=== PATIENT | male | born 1950 | race Caucasian/White ===

== ENCOUNTER → 2024-05-11 10:15 | Outpatient (REF) | payer MEDICARE, SELFPAY | LOC: HWRAD 10:15 | PROVIDERS: ATTENDING PHYSICIAN Physician Assistant; FAMILY PHYSICIAN Family Medicine | DX: J32.8 Other chronic sinusitis (principal) | CPT/HCPCS: 70486 ==

== ENCOUNTER → 2024-11-16 09:20 | Outpatient (REF) | payer MEDICARE, SELFPAY | LOC: RAD 09:20 | PROVIDERS: ATTENDING PHYSICIAN Internal Medicine Cardiovascular Disease; FAMILY PHYSICIAN Family Medicine | DX: R94.39 Abnormal result of other cardiovascular function study (principal) | CPT/HCPCS: 75574; Q9967 ==

== ENCOUNTER 2025-01-11 04:43 | Inpatient (IN) | payer MEDICARE, SELFPAY ==
[2025-01-05 12:45] VITALS: BMI 34.3
[2025-01-05 13:35] LABS: Hematocrit 51.9 % (39.0-52.0); Hemoglobin 17.5 g/dL (13.0-18.0); Mean Corp Hgb Conc. 33.7 g/dL (33.0-37.0); Mean Corpuscular Volume 88.0 fL (80.0-94.0); Nucleated Red Blood Cells % 0 % (-); Platelet Count 203 10^3/uL (130-400); Red Cell Dist. Width 13.2 % (11.5-14.5)
[2025-01-05 13:49] LABS: INR 0.98; PT 13.5 Sec (11.4-14.6)
[2025-01-05 14:08] LABS: ALT (SGPT) 31 U/L (0-50); AST (SGOT) 25 U/L (17-59); Albumin 4.8 g/dl (3.5-5.0); Alkaline Phosphatase 110 U/L (38-126); Blood Urea Nitrogen 28 mg/dl (9-20); Calcium 9.4 mg/dl (8.4-10.2); Carbon Dioxide 29 mmol/L (22-30); Estimated Creatinine Clearance 54 ml/min; Glucose 105 mg/dl (70-99); Potassium 4.9 mmol/L (3.5-5.1); Sodium 143 mmol/L (135-145); Total Protein 8.3 g/dl (6.3-8.2); eGFR 48.25
[2025-01-05 14:14] LABS: Chloride 106 mmol/L (98-107)
[2025-01-05 14:17] LABS: Glycohemoglobin (HgbA1c) 6.9 % (4.0-5.6)
[2025-01-05 14:32] LABS: Urine Character Clear (Clear)
--- NOTE | 2025-01-05 14:45 | CM ---
Chart reviewed. Met with the patient and in PAT. Reviewed preoperative and postoperative instructions and restrictions, along with showering guidelines. Gave patient 2 soaps. Patient is agreeable to a home visit by CT Transitional RN.
Patient is independent of ADLS, lives with his in a 2 [place], 2 [place]EX[place], 0 DME. Plan is for the patient to return home with CT Transitional RN.
[2025-01-05 15:25] LABS: Urine Red Blood Cell 0-2 /HPF (0-2)
[2025-01-05 15:26] LABS: Urine White Cell 0-2 /HPF (0-5)
[2025-01-11] VITALS (14 sets, daily range): BP systolic 70–133; BP diastolic 56–77; BMI 32.8
[2025-01-11] MEDS: LOPRESSOR 25 MG PO (05:42)
[2025-01-11] MEDS: BACTROBAN 2% OINTMENT 1 APPLIC NASAL ×2 (05:43→20:04)
[2025-01-11] MEDS: MAGNESIUM OXIDE 400 MG PO (05:43)
[2025-01-11] MEDS: PROTONIX 40 MG PO (05:43)
--- NOTE | 2025-01-11 06:04 | W.CVOR.SURPR ---
CVOR Surgeon Immed Pre Op
-
I have examined this patient prior to performance of the scheduled procedure.
The patient's condition is unchanged from the time of the dictated/written History and
Physical and the patient is able to undergo the scheduled procedure.
--- NOTE | 2025-01-11 06:15 | PTCARENOTE ---
Patient admitted to CVICU. Patient confirms both CHG showers. Patient admission questions completed. Patient clipped and washed w/ CHG. Patient med rec. completed. Medications administered. Awaiting CVOR.
[2025-01-11 07:18] LABS: ACT+ - POC 134 Seconds (82-134)
[2025-01-11 07:33] LABS: Urine Character Clear (Clear)
[2025-01-11 08:09] LABS: Urine Red Blood Cell 0-2 /HPF (0-2); Urine White Cell 0-2 /HPF (0-5)
[2025-01-11 09:50] LABS: B.E. - POC -3.1 mmol/L; Glucose - POC 178 mg/dl (70-99); HCO3 - POC 24 mmol/L (21-28); Hematocrit - POC 44 % PCV (42-52); Hemodilution- POC Yes; Hemoglobin Calculated - POC 14.9; Ionized Calcium - POC 1.28 mmol/L (1.15-1.33); Lactate - POC 0.85 mmol/L (0.36-0.75); O2 Saturation %Calculated-POC 99.5 % (94-98); PCO2 - POC 49 mmHg (35-48); PO2 - POC 191 mmHg (83-108); POC Comment PRE; Potassium - POC 4.0 mmol/L (3.5-5.1); Sodium - POC 139 mmol/L (136-145); Specimen Type - POC Arterial; pH - POC 7.30 (7.35-7.45)
[2025-01-11 10:19] LABS: B.E. - POC 1.8 mmol/L; Glucose - POC 158 mg/dl (70-99); HCO3 - POC 27 mmol/L (21-28); Hematocrit - POC 33 % PCV (42-52); Hemodilution- POC Yes; Hemoglobin Calculated - POC 11.2; Ionized Calcium - POC 1.08 mmol/L (1.15-1.33); Lactate - POC 0.49 mmol/L (0.36-0.75); O2 Saturation %Calculated-POC 100.0 % (94-98); PCO2 - POC 44 mmHg (35-48); PO2 - POC 403 mmHg (83-108); POC Comment CPB; Potassium - POC 5.1 mmol/L (3.5-5.1); Sodium - POC 137 mmol/L (136-145); Specimen Type - POC Arterial; pH - POC 7.40 (7.35-7.45)
[2025-01-11 10:49] LABS: B.E. - POC 1.1 mmol/L; Glucose - POC 154 mg/dl (70-99); HCO3 - POC 26 mmol/L (21-28); Hematocrit - POC 35 % PCV (42-52); Hemodilution- POC Yes; Hemoglobin Calculated - POC 12.0; Ionized Calcium - POC 1.14 mmol/L (1.15-1.33); Lactate - POC 1.27 mmol/L (0.36-0.75); O2 Saturation %Calculated-POC 99.9 % (94-98); PCO2 - POC 40 mmHg (35-48); PO2 - POC 268 mmHg (83-108); POC Comment CPB; Potassium - POC 4.3 mmol/L (3.5-5.1); Sodium - POC 140 mmol/L (136-145); Specimen Type - POC Arterial; pH - POC 7.42 (7.35-7.45)
[2025-01-11 11:03] LABS: ACT+ - POC 768 Seconds (82-134)
[2025-01-11 11:15] LABS: B.E. - POC -1.2 mmol/L; Glucose - POC 125 mg/dl (70-99); HCO3 - POC 24 mmol/L (21-28); Hematocrit - POC 31 % PCV (42-52); Hemodilution- POC Yes; Hemoglobin Calculated - POC 10.7; Ionized Calcium - POC 1.11 mmol/L (1.15-1.33); Lactate - POC 1.49 mmol/L (0.36-0.75); O2 Saturation %Calculated-POC 99.8 % (94-98); PCO2 - POC 40 mmHg (35-48); PO2 - POC 237 mmHg (83-108); POC Comment CPB; Potassium - POC 4.4 mmol/L (3.5-5.1); Sodium - POC 141 mmol/L (136-145); Specimen Type - POC Arterial; pH - POC 7.38 (7.35-7.45)
[2025-01-11 11:31] LABS: ACT+ - POC 801 Seconds (82-134)
[2025-01-11 11:47] LABS: B.E. - POC -0.1 mmol/L; Glucose - POC 113 mg/dl (70-99); HCO3 - POC 25 mmol/L (21-28); Hematocrit - POC 33 % PCV (42-52); Hemodilution- POC Yes; Hemoglobin Calculated - POC 11.2; Ionized Calcium - POC 1.15 mmol/L (1.15-1.33); Lactate - POC 1.31 mmol/L (0.36-0.75); O2 Saturation %Calculated-POC 99.9 % (94-98); PCO2 - POC 41 mmHg (35-48); PO2 - POC 302 mmHg (83-108); POC Comment CPB; Potassium - POC 4.0 mmol/L (3.5-5.1); Sodium - POC 143 mmol/L (136-145); Specimen Type - POC Arterial; pH - POC 7.39 (7.35-7.45)
[2025-01-11 11:57] LABS: ACT+ - POC 571 Seconds (82-134)
[2025-01-11 12:13] LABS: B.E. - POC -0.3 mmol/L; Glucose - POC 124 mg/dl (70-99); HCO3 - POC 24 mmol/L (21-28); Hematocrit - POC 35 % PCV (42-52); Hemodilution- POC Yes; Hemoglobin Calculated - POC 11.7; Ionized Calcium - POC 1.11 mmol/L (1.15-1.33); Lactate - POC 1.11 mmol/L (0.36-0.75); O2 Saturation %Calculated-POC 99.9 % (94-98); PCO2 - POC 39 mmHg (35-48); PO2 - POC 324 mmHg (83-108); POC Comment WARM; Potassium - POC 4.4 mmol/L (3.5-5.1); Sodium - POC 143 mmol/L (136-145); Specimen Type - POC Arterial; pH - POC 7.41 (7.35-7.45)
[2025-01-11 12:18] LABS: ACT+ - POC > 1003 Seconds (82-134)
[2025-01-11 12:18] LABS: ACT+ - POC > 1003 Seconds (82-134)
[2025-01-11 12:18] LABS: ACT+ - POC > 1003 Seconds (82-134)
[2025-01-11 12:25] LABS: ACT+ - POC 659 Seconds (82-134)
[2025-01-11 12:42] LABS: B.E. - POC -0.1 mmol/L; Glucose - POC 138 mg/dl (70-99); HCO3 - POC 25 mmol/L (21-28); Hematocrit - POC 33 % PCV (42-52); Hemodilution- POC Yes; Hemoglobin Calculated - POC 11.2; Ionized Calcium - POC 1.11 mmol/L (1.15-1.33); Lactate - POC 1.40 mmol/L (0.36-0.75); O2 Saturation %Calculated-POC 99.9 % (94-98); PCO2 - POC 40 mmHg (35-48); PO2 - POC 289 mmHg (83-108); POC Comment WARM; Potassium - POC 4.4 mmol/L (3.5-5.1); Sodium - POC 142 mmol/L (136-145); Specimen Type - POC Arterial; pH - POC 7.40 (7.35-7.45)
[2025-01-11 12:48] LABS: ACT+ - POC 531 Seconds (82-134)
[2025-01-11 13:23] LABS: B.E. - POC -1.2 mmol/L; Glucose - POC 147 mg/dl (70-99); HCO3 - POC 23 mmol/L (21-28); Hematocrit - POC 32 % PCV (42-52); Hemodilution- POC Yes; Hemoglobin Calculated - POC 10.9; Ionized Calcium - POC 1.12 mmol/L (1.15-1.33); Lactate - POC 1.27 mmol/L (0.36-0.75); O2 Saturation %Calculated-POC 99.9 % (94-98); PCO2 - POC 36 mmHg (35-48); PO2 - POC 280 mmHg (83-108); POC Comment CPB; Potassium - POC 4.3 mmol/L (3.5-5.1); Sodium - POC 138 mmol/L (136-145); Specimen Type - POC Arterial; pH - POC 7.41 (7.35-7.45)
[2025-01-11 13:38] LABS: ACT+ - POC 131 Seconds (82-134)
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
[2025-01-11 14:18] LABS: B.E. - POC -3.9 mmol/L; Glucose - POC 143 mg/dl (70-99); HCO3 - POC 22 mmol/L (21-28); Hematocrit - POC 27 % PCV (42-52); Hemodilution- POC Yes; Hemoglobin Calculated - POC 9.2; Ionized Calcium - POC 1.27 mmol/L (1.15-1.33); Lactate - POC 1.34 mmol/L (0.36-0.75); O2 Saturation %Calculated-POC 99.7 % (94-98); PCO2 - POC 44 mmHg (35-48); PO2 - POC 220 mmHg (83-108); POC Comment POST; Potassium - POC 4.0 mmol/L (3.5-5.1); Sodium - POC 141 mmol/L (136-145); Specimen Type - POC Arterial; pH - POC 7.31 (7.35-7.45)
[2025-01-11] MEDS: NOVOLOG FLEXPEN SC ×2 (14:37→16:01)
[2025-01-11 14:38] LABS: B.E. - POC -3.5 mmol/L; Glucose - POC 168 mg/dl (70-99); HCO3 - POC 23 mmol/L (21-28); Hematocrit - POC 28 % PCV (42-52); Hemodilution- POC Yes; Hemoglobin Calculated - POC 9.4; Ionized Calcium - POC 1.06 mmol/L (1.15-1.33); Lactate - POC 1.79 mmol/L (0.36-0.75); O2 Saturation %Calculated-POC 100.0 % (94-98); PCO2 - POC 46 mmHg (35-48); PO2 - POC 431 mmHg (83-108); POC Comment CPB; Potassium - POC 4.6 mmol/L (3.5-5.1); Sodium - POC 143 mmol/L (136-145); Specimen Type - POC Arterial; pH - POC 7.31 (7.35-7.45)
[2025-01-11] MEDS: NEURONTIN PO ×2 (14:38→21:25)
[2025-01-11] MEDS: PACERONE PO ×2 (14:38→21:25)
[2025-01-11] MEDS: TYLENOL PO ×2 (14:38→20:05)
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
[2025-01-11 14:55] LABS: ACT+ - POC 137 Seconds (82-134)
[2025-01-11 15:21] LABS: ACT+ - POC > 1003 Seconds (82-134)
[2025-01-11 15:21] LABS: ACT+ - POC > 1003 Seconds (82-134)
[2025-01-11 15:41] LABS: B.E. - POC -1.5 mmol/L; Glucose - POC 173 mg/dl (70-99); HCO3 - POC 25 mmol/L (21-28); Hematocrit - POC 28 % PCV (42-52); Hemodilution- POC Yes; Hemoglobin Calculated - POC 9.4; Ionized Calcium - POC 1.14 mmol/L (1.15-1.33); Lactate - POC 1.49 mmol/L (0.36-0.75); O2 Saturation %Calculated-POC 99.8 % (94-98); PCO2 - POC 50 mmHg (35-48); PO2 - POC 246 mmHg (83-108); POC Comment POST; Potassium - POC 4.3 mmol/L (3.5-5.1); Sodium - POC 142 mmol/L (136-145); Specimen Type - POC Arterial; pH - POC 7.31 (7.35-7.45)
[2025-01-11 15:55] LABS: Glucose - Point of Care 181 mg/dl (70-99)
[2025-01-11 15:59] LABS: B.E. -2.8 mmol/L; HCO3 24.0 mmol/L (21-28); O2 Saturation % 98.2 % (94-98); PCO2 50 mmHg (35-48); PO2 104 mmHg (83-108); Potassium 4.8 mMOL/L (3.5-5.1); Sodium 138 mMOL/L (136-145)
[2025-01-11 16:00] LABS: O2 Therapy VENT
[2025-01-11 16:01] LABS: Hematocrit 29.2 % (39.0-52.0); Hemoglobin 10.3 g/dL (13.0-18.0); Platelet Count 87 10^3/uL (130-400)
[2025-01-11] MEDS: ANCEF 10 IV ×2 (16:01)
[2025-01-11] MEDS: NSS 500 IV (16:01)
--- NOTE | 2025-01-11 16:05 | PTCARENOTE ---
pt received from CVOR @~1545, sedated on Precedex gtt, RASS -5. core temp 96.4F, bear hugger applied as ordered. SR on the monitor, HR 80-90s. no epicardial wires. SBP 80-130s, MAP >65. Levophed gtt titrated as ordered. PAP 20s/10s. CVP~5-7. CI
1.48. LIABILITY CLAIMS EXAMINER aware. Dobutamine gtt running as ordered. palpable pulses, no edema. pt mechanically ventilated, ETT #8.0, 24cm@lip. SIMV 16, TV 500, PEEP 5, FIO2 40%. POX 94-99%. lungs clear anteriorly. suctioned for thin clear secretions, oral hygiene
performed. CTx4, no air leak or crepitus noted. pt abdomen s/n, hypoactive BS. mancuso in place, blood tinged colored urine, LIABILITY CLAIMS EXAMINER aware. sternal Aquacel intact. chest tube site c/d/i. b/l groin punctures JACQUELYN. b/l LE SHARRI bandages in place. RIJ
cordis/swan maintained. L radial A-line flushed, zeroed and calibrated. PIV. insulin gtt running as ordered. lab work drawn, EKG performed, CXR completed. see worklist for VS, I&O, and assessment.
[2025-01-11 16:09] LABS: APTT 35.2 Sec (23.4-35.0); INR 1.65; PT 20.1 Sec (11.4-14.6)
[2025-01-11] MEDS: CALCIUM GLUCONATE 100 IV ×2 (16:09→23:42)
[2025-01-11 16:20] LABS: Blood Urea Nitrogen 27 mg/dl (9-20); Estimated Creatinine Clearance 82 ml/min; Glucose 163 mg/dl (70-99); Magnesium 2.6 mg/dl (1.6-2.3)
[2025-01-11] MEDS: LR 250 ML IV ×4 (16:21→18:19)
--- NOTE | 2025-01-11 16:23 | PTCARENOTE ---
DERMATOLOGY SPECIALIST aware of CT output. calcium repleted. RR increased per DERMATOLOGY SPECIALIST based on post op ABG. 1pk plts transfused as ordered.
[2025-01-11 16:57] LABS: Glucose - Point of Care 169 mg/dl (70-99)
[2025-01-11] MEDS: PRECEDEX 100 IV (17:00)
[2025-01-11 17:30] LABS: B.E. -1.5 mmol/L; HCO3 23.7 mmol/L (21-28); O2 Saturation % 98.5 % (94-98); PCO2 41 mmHg (35-48); PO2 107 mmHg (83-108); Potassium 4.7 mMOL/L (3.5-5.1)
[2025-01-11 18:10] LABS: Glucose - Point of Care 152 mg/dl (70-99)
--- NOTE | 2025-01-11 18:20 | PTCARENOTE ---
DAIRY CATTLE FARM WORKER aware of hemodynamics. 1L total of LR given as ordered. DAIRY CATTLE FARM WORKER aware of ABG result on vent settings.
[2025-01-11 19:17] LABS: Glucose - Point of Care 153 mg/dl (70-99)
--- NOTE | 2025-01-11 19:52 | PTCARENOTE ---
Assumed care of pt from kevin RN. Report at bedside. Pt intubated and sedated s/p CVOR. Pt occasionally waking up and breathing over tube during report. Precedex turned off. Pt able to follow simple commands while awake. CPOT 1. Pt is SR on the
tele monitor w/ occasional PVCs. HR 80s. No wires. BP's labile. Pt vagals w/ waking up. SBP's drop to the 50s. BP's stabilize w/ increase in levo and legs held in the air. PAPs 20s/10's. CVP ~3. CI 1.57 - CTPA aware. B/L DP pulses weak on palpation.
B/L radial pulses palpable. Pt w/ 8.0 ETT, 24 cm @ R lip. Vent settings as documented in worklist. FiO2 40%. POX 96-98%. Mediastinal CTx2 and R/L pleural CT to -20 suction. No airleaks or tidaling noted at this time. Output appropriate and as
documented. Lung sounds audible anteriorly. Abdomen round. Hypoactive BS. Velazquez catheter intact and draining yellow urine. B/L groin punctures approximated and PERSONNEL CLERK. B/L leg harvest sites approximated and covered w/ SHARRI wrap. Sternal incision
approximated and covered w/ antibacterial dressing. Right IJ cordis w/ swan @51 intact. Left radial a-line intact. PIV x2 intact. All lines leveled, zeroed, and flushed. Dobutamine, insulin, and levo infusing. Glycemic protocol followed. See
worklist for full nursing assessment and interventions.
[2025-01-11] MEDS: ANCEF 5 IV (20:04)
[2025-01-11] MEDS: ALBUMIN 5% 250 IV (20:04)
[2025-01-11] MEDS: SENOKOT PO (20:05)
[2025-01-11 20:15] LABS: Glucose - Point of Care 166 mg/dl (70-99)
[2025-01-11 20:44] LABS: B.E. -0.8 mmol/L; HCO3 24.3 mmol/L (21-28); O2 Saturation % 97.9 % (94-98); PCO2 41 mmHg (35-48); PO2 106 mmHg (83-108); Potassium 4.6 mMOL/L (3.5-5.1)
[2025-01-11 21:11] LABS: Hematocrit 25.3 % (39.0-52.0); Hemoglobin 8.9 g/dL (13.0-18.0); Platelet Count 121 10^3/uL (130-400)
[2025-01-11 21:15] LABS: INR 1.40; PT 17.7 Sec (11.4-14.6)
[2025-01-11 21:16] LABS: APTT 32.1 Sec (23.4-35.0)
[2025-01-11] MEDS: ASPIRIN 300 MG RECTAL (21:25)
[2025-01-11] MEDS: ZETIA PO (21:25)
[2025-01-11] MEDS: LIPITOR PO (21:25)
[2025-01-11 21:57] LABS: Glucose - Point of Care 157 mg/dl (70-99)
[2025-01-11 22:30] LABS: B.E. -2.8 mmol/L; HCO3 22.6 mmol/L (21-28); O2 Saturation % 97.7 % (94-98); PCO2 41 mmHg (35-48); PO2 85 mmHg (83-108)
[2025-01-11] MEDS: OFIRMEV 100 IV (22:50)
--- NOTE | 2025-01-11 23:00 | SUR.PHASEI ---
Pt breathing over vent and following simple commands. Reparatory contacted via TT. Pt placed on CPAP setting ~2150. ABG drawn and sent - results reviewed w/ CTPA. Respiratory at the bedside. Pt extubated to 6 L NC ~2240. POX 98%. IS ~1000. Oriented
to person, place, and time.
[2025-01-12] VITALS (30 sets, daily range): BP systolic 72–142; BP diastolic 27–131; BMI 34.2
[2025-01-12 00:26] LABS: Glucose - Point of Care 146 mg/dl (70-99)
--- NOTE | 2025-01-12 00:43 | PTCARENOTE ---
Pt reassessed. Pt SR to sinus tach w/ occasional PVCs. HR 90-100s. BPs 100s-120s/40-50s. PAPs 20s/tens. CVP ~3. CI: 2.42. Pt on 6 L NC. POX 94-98%. Mediastinal CTx2 and R/L pleural CT assessment's remain unchanged. Velazquez catheter intact and draining
yellow urine. All surgical sites stable. Dobutamine, levo, and insulin infusing as ordered. All lines leveled, zeroed, and flushed. Pt repositioned in bed. Tolerating ice chips. Call de jesus within reach.
[2025-01-12] MEDS: NOVOLIN R INSULIN INFUSION 100 IV ×2 (01:11→16:05)
[2025-01-12 01:20] LABS: Glucose - Point of Care 146 mg/dl (70-99)
[2025-01-12 02:05] LABS: Glucose - Point of Care 164 mg/dl (70-99)
[2025-01-12] MEDS: DILAUDID 0.25 MG IV (02:42)
[2025-01-12 03:10] LABS: Glucose - Point of Care 152 mg/dl (70-99)
[2025-01-12] MEDS: LEVOPHED 250 IV (03:42)
[2025-01-12] MEDS: ANCEF 5 IV ×2 (03:42→12:23)
[2025-01-12 03:49] LABS: Hematocrit 24.6 % (39.0-52.0); Hemoglobin 8.8 g/dL (13.0-18.0); Mean Corp Hgb Conc. 35.8 g/dL (33.0-37.0); Mean Corpuscular Volume 84.5 fL (80.0-94.0); Platelet Count 101 10^3/uL (130-400); Red Cell Dist. Width 14.6 % (11.5-14.5)
[2025-01-12 04:08] LABS: Blood Urea Nitrogen 29 mg/dl (9-20); Calcium 8.8 mg/dl (8.4-10.2); Carbon Dioxide 24 mmol/L (22-30); Chloride 112 mmol/L (98-107); Estimated Creatinine Clearance 58 ml/min; Glucose 145 mg/dl (70-99); Magnesium 2.1 mg/dl (1.6-2.3); Potassium 4.0 mmol/L (3.5-5.1); Sodium 140 mmol/L (135-145); eGFR 52.41
[2025-01-12 04:11] LABS: Glucose - Point of Care 165 mg/dl (70-99)
--- NOTE | 2025-01-12 04:34 | PTCARENOTE ---
Pt reassessed. SR to sinus tach on the tele monitor. HR 90 to low 100s. BP 100-120s/40s. PAPs 20s/teens. CVP ~6-8. CI: 2.39. Pt on 2 L NC. POX 93%. Mediastinal CTx2 and R/L pleural CT assessment unchanged. Pt w/ occasional productive cough. Velazquez
catheter intact and draining yellow urine. All surgical sites stable. All lines leveled, zeroed, and flushed. Labs drawn and sent. Levo, dobutamine, and insulin infusing. Pt repositioned in bed. Call de jesus within reach.
[2025-01-12] MEDS: DILAUDID 0.5 MG IV (04:52)
[2025-01-12 04:56] LABS: Glucose - Point of Care 139 mg/dl (70-99)
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
[2025-01-12] MEDS: TYLENOL 975 MG PO ×3 (06:10→19:54)
[2025-01-12 07:04] LABS: Glucose - Point of Care 159 mg/dl (70-99)
--- NOTE | 2025-01-12 07:25 | W.PN.INTV ---
Today's Communication / Plan
Recommendations
- Continue to wean dobutamine as tolerated
- Incentive spirometry
- High pretest probability of sleep apnea, will pursue sleep study as outpatient
Assessment
-
Patient is a 74-year-old gentleman with extensive past medical history who had a coronary catheterization performed in November 2024 that demonstrated severe coronary artery disease involving all his major arteries. Of note his calcium score is more
than 4000. Patient also noted to have concurrent aortic valve stenosis. He was evaluated by CT surgery services outpatient and today was admitted to the hospital for coronary revascularization and aortic valve replacement. Postprocedure, patient
was admitted to the ICU and wood veneer taper service was consulted for further input.
Patient is a 74-year-old gentleman with severe multivessel coronary artery disease as well as mild to moderate aortic stenosis, s/p CABG and left atrial appendage exclusion POD # 1
Titrate off pressors per protocol, currently on dobutamine infusing at 3, MAP of 71, CVP of 8.
ECHO reviewed with normal LVEF
PA catheter readings reviewed, 20/03, mean 16.
Management of chest tubes per primary service
Extubated, currently on 2 L supplemental oxygen, 96% saturation. No respiratory distress or cough reported. Chest x-ray with mild atelectasis.
Maintain supplement oxygen as needed
No prior known history of pulmonary disease, smoked briefly in early years, quit 35 years ago.
Can add nebulizers if needed
Aspiration precautions
Encouraged incentive spirometry, OOB/ambulation/early mobility
Advance diet as tolerated following extubation
GI prophylaxis: Protonix
Monitor critical I/O's
Velazquez/chest tube output
Hb/platelets postoperatively, mild drift
Trend CBC for now
Thrombocytopenia noted at 87,000. Patient currently scheduled to receive platelet transfusion. S/p 2 units PRBC in OR.
DVT prophylaxis including SCDs
Insulin protocol initiated and ongoing
Transition to SQ/off as indicated per team
Other medical diagnoses:
- Hypertension
- Hyperlipidemia
- Insulin-dependent diabetes mellitus
- Chronic kidney disease stage III. Stable Cr
- Aortic stenosis, mild to moderate
- BMI 32.7, high pretest probability of underlying sleep disordered breathing. Patient reports napping during daytime, feels tired during daytime and excessive sleepiness. Will pursue sleep study as outpatient. Follow-up information added to the
chart.
- Mild thrombocytopenia, stable
Critical Care time 43 mins -- The patient is admitted for acute critical illness for the treatment of vital organ failure and/or prevention of further life-threatening conditions. Total care includes time spent in review of history, physical exam,
medications, hemodynamic/ventilator parameters, laboratory data, imaging and discussion with house staff, pharmacy, respiratory therapy, mold worker, and nursing
Data:
Carotid US 12/2024: RIGHT: Calcified plaque is identified in the internal carotid artery. Carotid velocity measurements are consistent with less than 50% internal carotid artery stenosis. Vertebral artery flow is antegrade.
LEFT: Calcified plaque is identified at the carotid bulb and internal carotid artery. Carotid velocity measurements are consistent with less than 50% internal carotid artery stenosis. Vertebral artery flow is antegrade.
Subjective Dataa
Subjective Data
Date of Service:
Date of Service: January 12, 2025
Subjective:
Patient comfortably lying in bed in no acute distress.
Review of Systems
Genitourinary: Other (All 14 systems reviewed and negative except as stated above in the history of present illness.)
Objective Data
Data Reviewed
Vital Signs / I&O / Oxygen:
Vital Signs
Temp Pulse Resp BP Pulse Ox
98.8 F 104 18 105/77 94
01/12/25 07:00 01/12/25 07:05 01/12/25 07:05 01/12/25 06:00 01/12/25 07:05
Intake and Output
01/11/25 01/12/25 01/13/25
06:59 06:59 06:59
Intake Total 2851.7 / 2886.6 34.9 / 34.9
Output Total 2065 / 2104
Balance 786.7 / 781.6 -5.1 / -5.1
SaO2 [CPAP/PSV] 94
SaO2 [SIMV] 99
SaO2 94
Nasal Cannula flow liters per 2
minute
Physical Exam
General: Comfortable
HEENT: Normocephalic
Cardiovascular: S1-S2
Respiratory: Clear
GI: Soft and Non Distended
Neurology: Awake and Alert
Skin: Warm
Labs/Micro/Reports
Lab Data
01/12/25 03:35
01/12/25 03:35
Laboratory Results
01/11/25 01/11/25 01/11/25
15:45 15:46 17:05
PT 20.1 H
INR 1.65
APTT 35.2 H
pH 7.29 L Cancelled
pCO2 50 H Cancelled
pO2 104 Cancelled
HCO3 24.0 Cancelled
O2 Delivery Level Vent Cancelled
01/11/25 01/11/25 01/11/25
17:16 20:36 20:59
PT Cancelled 17.7 H
INR Cancelled 1.40
APTT Cancelled 32.1
pH 7.37 7.38
pCO2 41 41
pO2 107 106
HCO3 23.7 24.3
O2 Delivery Level
01/11/25
22:24
PT
INR
APTT
pH 7.35
pCO2 41
pO2 85
HCO3 22.6
O2 Delivery Level
--- NOTE | 2025-01-12 07:34 | W.PN.ANS.POP ---
Anesthesia Post Operative
- Anesthesia Post Op Note
Vital Signs Stable-See Nursing Note: Yes
Airway Patent: Yes
Adequate Pain Control: Yes
Change in Mental Status: No
Current Postoperative Nausea & Vomiting: No
Anesthesia Complications: No
General Anesthetic Recall: No
Unplanned Admission: No
Post Op Hydration Adequate: Yes
[2025-01-12] MEDS: ROXICODONE 5 MG PO ×2 (08:27→19:53)
[2025-01-12] MEDS: NEURONTIN 100 MG PO ×3 (08:28→22:21)
[2025-01-12] MEDS: PACERONE 200 MG PO ×3 (08:28→22:21)
[2025-01-12] MEDS: PLAVIX 75 MG PO (08:28)
[2025-01-12] MEDS: LOW STRENGTH ASPIRIN 81 MG PO (08:28)
[2025-01-12] MEDS: PROTONIX 40 MG PO (08:29)
[2025-01-12] MEDS: MAGNESIUM OXIDE 400 MG PO ×2 (08:29→19:54)
[2025-01-12] MEDS: BACTROBAN 2% OINTMENT 1 APPLIC NASAL ×2 (08:29→19:55)
[2025-01-12] MEDS: SENOKOT 8.6 MG PO ×2 (08:29→19:54)
[2025-01-12] MEDS: LIDOCAINE 4% PATCH 1 PATCH TOPICAL (08:29)
[2025-01-12] MEDS: ZOFRAN 4 MG IV (08:34)
--- NOTE | 2025-01-12 08:47 | PTCARENOTE ---
Received pt from manufacturing supervisor 2nd shift RN; pt AAOx3 and resting comfortably in bed; Sinus Tachycardia on monitor and VSS; RIJ Sujti Aguilera floated to 51, Left A-line and PIV x2; all lines leveled and zeroed; Dobutamine and Insulin infusing see flow sheet for
details; Lungs diminished; IS to 750; CT x4 to -20 wall suction no air leak and no crepitus noted; hypoactive bowel sounds; Velazquez Catheter draining clear yellow urine; Palpable B/L radial pulses and weak lower extremity pulses; trace generalized
edema noted; all surgical sites C/D/I; see nursing documentation for further details.
CI 2.56
CO 5.91
SVR 758
--- NOTE | 2025-01-12 08:50 | W.PN.CD ---
Today's Communication / Plan
-
- Stable postoperatively; on dobutamine--try to wean.
- Sinus tachycardia on telemetry.
- Continue routine postsurgical care as directed by CT Surgery.
Impression / Plan
-
CAD s/p CABG x 5 on 01/11/25:
- Stable postoperatively; on dobutamine--try to wean.
- Sinus tachycardia on telemetry.
- Continue aspirin/Plavix and atorvastatin.
- EF 60%.
- Continue routine postsurgical care as directed by CT Surgery.
Hypertension:
- Continue to monitor blood pressure postoperatively.
Hyperlipidemia:
- Continue atorvastatin.
Physical Exam
Vital Signs/Labs
Vital Signs
Temp Pulse Resp BP Pulse Ox
99 F 107 22 93/59 94
01/12/25 08:00 01/12/25 08:05 01/12/25 08:05 01/12/25 07:08 01/12/25 08:05
01/11/25 01/12/25 01/13/25
06:59 06:59 06:59
Actual Weight 109.5 kg 114.4 kg
01/12/25 03:35
01/12/25 03:35
PT 17.7 Sec (11.4-14.6) H 01/11/25 20:59
INR 1.40 01/11/25 20:59
APTT 32.1 Sec (23.4-35.0) 01/11/25 20:59
Magnesium 2.1 mg/dl (1.6-2.3) 01/12/25 03:35
Physical Exam
Constitutional: No acute distress and Comfortable
EENT: Anicteric
Cardiovascular: Pedal edema is absent, Systolic murmur absent, S1S2 is normal and Other (Regular rhythm, tachycardic)
Respiratory: Respiratory effort normal and Lungs clear to auscul.
GI: Soft
Neuro/Psych: AO x 3
Other: Skin (Warm, dry, intact)
Data Reviewed
-
Date of Service: January 12, 2025
EKG: Tracing Personally Visualized and interpreted (Telemetry: Sinus tachycardia)
Medical Tests (PFT, Pathology etc): Discussed with Physician (CT Surgery team) and Discussed with Nurse
Labs: Labs Reviewed by me
Critical Care Time (in minutes): 34
[2025-01-12] MEDS: LASIX 40 MG IV (09:01)
[2025-01-12] MEDS: NOVOLOG FLEXPEN 4 UNITS SC ×3 (09:02→17:44)
[2025-01-12 09:06] LABS: Glucose - Point of Care 160 mg/dl (70-99)
[2025-01-12 10:13] LABS: Glucose - Point of Care 153 mg/dl (70-99)
[2025-01-12 11:10] LABS: Glucose - Point of Care 172 mg/dl (70-99)
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
--- NOTE | 2025-01-12 11:48 | PTCARENOTE ---
Sinus Tachycardia on monitor and VSS; assessment unchanged; Dobutamine and Insulin infusing see flow sheet for details; family at bedside and updated on plan of day.
[2025-01-12 12:06] LABS: Glucose - Point of Care 168 mg/dl (70-99)
[2025-01-12] MEDS: FLEXERIL 5 MG PO (12:23)
[2025-01-12 13:05] LABS: Glucose - Point of Care 173 mg/dl (70-99)
[2025-01-12] MEDS: NSS IV (13:28)
[2025-01-12 14:57] LABS: Glucose - Point of Care 187 mg/dl (70-99)
[2025-01-12 16:03] LABS: Glucose - Point of Care 181 mg/dl (70-99)
[2025-01-12 17:11] LABS: Glucose - Point of Care 165 mg/dl (70-99)
--- NOTE | 2025-01-12 17:35 | PTCARENOTE ---
Sinus Tachycardia on monitor and VSS; labs collected; Dobutamine turned off; family at bedside and pt resting comfortably in bed.
[2025-01-12 17:43] LABS: Hematocrit 22.6 % (39.0-52.0); Hemoglobin 7.8 g/dL (13.0-18.0); Mean Corp Hgb Conc. 34.5 g/dL (33.0-37.0); Mean Corpuscular Volume 84.6 fL (80.0-94.0); Platelet Count 101 10^3/uL (130-400); Red Cell Dist. Width 15.1 % (11.5-14.5)
[2025-01-12 18:04] LABS: Blood Urea Nitrogen 32 mg/dl (9-20); Calcium 8.2 mg/dl (8.4-10.2); Carbon Dioxide 25 mmol/L (22-30); Chloride 108 mmol/L (98-107); Estimated Creatinine Clearance 49 ml/min; Glucose 146 mg/dl (70-99); Potassium 3.8 mmol/L (3.5-5.1); Sodium 138 mmol/L (135-145); eGFR 41.52
[2025-01-12 18:05] LABS: Glucose - Point of Care 143 mg/dl (70-99)
[2025-01-12 18:59] LABS: Glucose - Point of Care 137 mg/dl (70-99)
--- NOTE | 2025-01-12 20:00 | PTCARENOTE ---
Assumed care of patient at 1900. Patient found resting in bed at time of assessment. Patient is Aox4, follows commands appropriately, moves all extremities. Lung sounds are diminished in the bases, saO2 96% on 2L via NC, 1000 on IS, patient has
4xCT: 2xmeds draining to one atrium and R/L pleural draining to another. No air leaks or crepitus noted. Patient has audible heart sounds, they are ST on the monitor, normal palpable radial and weak but palpable DP pulses. There is generalized trace
edema present. Patient has active BS in all four quadrants of round firm abdomen and mancuso catheter draining clear yellow. Patient has sternal incision with aquacell dressing that is CDI, ABD dressing over CT wounds that is CDI, bilateral groin
punctures approx with surg adhesive JACQUELYN, and bilateral leg incision approx with surg adhesive BROOMMAKING SUPERVISOR. VSS. Given Kay 5 for pain. Call de jesus within reach.
[2025-01-12 20:05] LABS: Glucose - Point of Care 99 mg/dl (70-99)
[2025-01-12 21:10] LABS: Glucose - Point of Care 109 mg/dl (70-99)
[2025-01-12] MEDS: ZETIA 10 MG PO (22:17)
[2025-01-12] MEDS: SYNTHROID 50 MCG PO (22:21)
[2025-01-12] MEDS: LIPITOR 10 MG PO (22:21)
[2025-01-12 22:25] LABS: Glucose - Point of Care 144 mg/dl (70-99)
[2025-01-13] VITALS (27 sets, daily range): BP systolic 99–134; BP diastolic 41–82; PULSE 85; O2SAT 95–98; BMI 35.0
[2025-01-13 00:02] LABS: Glucose - Point of Care 162 mg/dl (70-99)
[2025-01-13] MEDS: NOVOLIN R INSULIN INFUSION 100 IV ×2 (02:26→16:26)
[2025-01-13 03:29] LABS: Hematocrit 21.7 % (39.0-52.0); Hemoglobin 7.4 g/dL (13.0-18.0); Mean Corp Hgb Conc. 34.1 g/dL (33.0-37.0); Mean Corpuscular Volume 85.8 fL (80.0-94.0); Platelet Count 94 10^3/uL (130-400); Red Cell Dist. Width 15.3 % (11.5-14.5)
[2025-01-13 03:41] LABS: Blood Urea Nitrogen 35 mg/dl (9-20); Calcium 8.5 mg/dl (8.4-10.2); Carbon Dioxide 27 mmol/L (22-30); Chloride 109 mmol/L (98-107); Estimated Creatinine Clearance 52 ml/min; Glucose 102 mg/dl (70-99); Magnesium 2.2 mg/dl (1.6-2.3); Potassium 3.7 mmol/L (3.5-5.1); Sodium 138 mmol/L (135-145); eGFR 44.65
[2025-01-13 04:33] LABS: Glucose - Point of Care 124 mg/dl (70-99)
[2025-01-13 04:33] LABS: Glucose - Point of Care 93 mg/dl (70-99)
[2025-01-13 06:12] LABS: Glucose - Point of Care 79 mg/dl (70-99)
--- NOTE | 2025-01-13 06:30 | PTCARENOTE ---
Patient reassessed. VSS. No c/o pain. AM labs obtained. AM hygiene care provided. Per CT PA patient to remain lined and in bed. Pending blood transfusion per surgeon relayed to dayshift RN.
[2025-01-13] MEDS: TYLENOL 975 MG PO ×3 (06:31→20:25)
[2025-01-13] MEDS: KCL 40 MEQ PO (06:32)
[2025-01-13 07:28] LABS: Glucose - Point of Care 87 mg/dl (70-99)
--- NOTE | 2025-01-13 07:30 | PTCARENOTE ---
Assumed care of patient from cardroom attendant RN. AAO x 3. SR on monitor. RT IJ cordis with swan at 51 cm. Lt radial A line transducing. Lines leveled, recalibrated and flushed. 2 L NC 96%. IS to 1000. Chest tubes x 4 to - 20 cm suction. No air
leak or crepitus noted. Abdomen round, obese, positive bowel sounds, states passing flatus. Velazquez draining clear yellow urine. Surgical sites c,,di. Pulses palpable. plan for day discussed.
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
[2025-01-13] MEDS: BACTROBAN 2% OINTMENT 1 APPLIC NASAL ×2 (08:18→20:25)
[2025-01-13] MEDS: PACERONE 200 MG PO ×3 (08:19→22:54)
[2025-01-13] MEDS: PLAVIX 75 MG PO (08:19)
[2025-01-13] MEDS: PROTONIX 40 MG PO (08:19)
[2025-01-13] MEDS: NEURONTIN 100 MG PO ×3 (08:19→22:53)
[2025-01-13] MEDS: CYMBALTA DELAYED RELEASE 60 MG PO (08:19)
[2025-01-13] MEDS: SENOKOT 8.6 MG PO ×2 (08:19→20:26)
[2025-01-13] MEDS: LOPRESSOR 12.5 MG PO ×2 (08:19→20:29)
--- NOTE | 2025-01-13 08:19 | W.PN.CD ---
Today's Communication / Plan
-
Incentive spirometry.
Ambulate when appropriate.
Routine post operative care.
Monitor H/H and platelets.
Agree with transfusion and diuretics.
Impression / Plan
-
Impression/Plan: 74 y/o male with HTN, HLD, IDDM, moderate aortic valve stenosis and multivessel CAD admitted for elective CABG.
#CAD s/p CABG x 5 on 01/11/25:
-Chronic, progressive.
-S/P CABG x5 (SANTACRUZ to LAD, SVG to D1, SVG to OM1, SVG to OM3, SVG to LPL/OM3) with Dr. Davies, 01/11/2025.
-S/P LAAE (#40 AtriCure AtriClip; LOT [id number]).
-Continue amiodarone, aspirin, atorvastatin, clopidogrel, ezetimibe, metoprolol.
-Given furosemide 40 mg IV x1 yesterday.
-Incentive spirometry.
-Ambulation when appropriate.
-Monitor H/H and platelets. Transfusion today to be followed by diuretics.
#Hypertension:
-Chronic, stable.
-Re-start home antihypertensives as hemodynamics will permit post operatively.
#Hyperlipidemia:
-Chronic, stable.
-Continue atorvastatin (10 mg?).
-Goal LDL < 55.
#IDDM
-Chronic, stable.
-Insulin per protocol.
-Resume dapagliflozin.
-Role for GLP-1 agonists.
#Obesity
-Chronic, stable.
-BMI 35.
-He would benefit from weight loss.
#CKD
-Chronic, stable.
-Creatinine 1.6 (appears close to baseline).
Critical Care Time = 40 minutes.
Subjective/Interval History:
Weight is up 7.3 kg from baseline.
SaO2 94% on 2LNC.
Hbg down to 7.4.
Plt down to 94k.
Creatinine 1.6 (appears close to baseline).
DATA:
CT Surgery, 01/11/2025:
PROCEDURES:
1. Median sternotomy
2. Takedown of ANTWON (narrow pedicle)
3. Endoscopic harvest/prep of RLE GSV
4. Endoscopic harvest/prep of LLE GSV
5. CABG x 5 (ANTWON to LAD, GSV to D1, GSV to OM1, GSV to OM2, GSV to
LPLB/OM3)
6. ELAA w/ 40mm AtriClip
7. Separation from CPB - decannulation
8. Re-establishement of CPB
9. Pump-assist, beating repair of heel of graft to OM2
10. Separation from CPB - decannulation
11. Sternal closure.
Physical Exam
Vital Signs/Labs
Vital Signs
Temp Pulse Resp BP Pulse Ox
37.7 C 102 22 110/48 94
01/13/25 08:10 01/13/25 08:10 01/13/25 08:10 01/13/25 08:10 01/13/25 08:10
01/11/25 01/12/25 01/13/25
11:59 11:59 11:59
Actual Weight 109.5 kg 114.4 kg 116.8 kg
01/13/25 03:07
01/13/25 03:07
PT 17.7 Sec (11.4-14.6) H 01/11/25 20:59
INR 1.40 01/11/25 20:59
APTT 32.1 Sec (23.4-35.0) 01/11/25 20:59
Magnesium 2.2 mg/dl (1.6-2.3) 01/13/25 03:07
Physical Exam
Constitutional: No acute distress and Comfortable
EENT: Anicteric and Moist mucous membranes
Cardiovascular: Rhythm & rate is regular, S1S2 is normal and Murmur/rub/gallop absent
Respiratory: Respiratory effort normal, Lungs clear to auscul., Wheeze Absent, Crackles Absent and Rhonchi Absent
GI: Soft, Distention absent, Flat, Non tender and Normal bowel sounds
Neuro/Psych: AO x 3
Data Reviewed
-
Date of Service: January 13, 2025
Medical Decision Making: Reviewed Test Results, Independent Historian Assessment and Test Interpretation
EKG: Tracing Personally Visualized and interpreted and Report Reviewed by me
X-Ray/CT/US/MRI/NUC/PET: Image Personally Visualized and interpreted and Report Reviewed by me
Labs: Labs Reviewed by me
Old Records: Reviewed
[2025-01-13] MEDS: LOW STRENGTH ASPIRIN 81 MG PO (08:20)
[2025-01-13] MEDS: MAGNESIUM OXIDE PO (08:20)
[2025-01-13] MEDS: LIDOCAINE 4% PATCH TOPICAL (08:20)
--- NOTE | 2025-01-13 08:32 | W.PN.INTV ---
Today's Communication / Plan
Recommendations
- Wean insulin infusion per protocol
- Incentive spirometry, increase activity as tolerated
- Outpatient follow-up with [facility] pulmonary clinic for sleep study
- Federal Law Clerk service will continue to follow while patient is in CVICU
Assessment
-
Patient is a 74-year-old gentleman with extensive past medical history who had a coronary catheterization performed in November 2024 that demonstrated severe coronary artery disease involving all his major arteries. Of note his calcium score is more
than 4000. Patient also noted to have concurrent aortic valve stenosis. He was evaluated by CT surgery services outpatient and today was admitted to the hospital for coronary revascularization and aortic valve replacement. Postprocedure, patient
was admitted to the ICU and electronic imager service was consulted for further input.
Patient is a 74-year-old gentleman with severe multivessel coronary artery disease as well as mild to moderate aortic stenosis, s/p CABG and left atrial appendage exclusion POD # 2
Titrated off pressors per protocol, currently MAP of 69, not requiring any pressor support.
ECHO reviewed with normal LVEF
PA catheter readings reviewed, 25/04, mean of 19.
Management of chest tubes per primary service
Extubated, currently on 2 L supplemental oxygen, 95% saturation. No respiratory distress or cough reported. Chest x-ray essentially unchanged
Maintain supplement oxygen as needed
No prior known history of pulmonary disease, smoked briefly in early years, quit 35 years ago.
Can add nebulizers if needed
Aspiration precautions
Encouraged incentive spirometry, OOB/ambulation/early mobility
Advance diet as tolerated following extubation
GI prophylaxis: Protonix
Monitor critical I/O's
Velazquez/chest tube output
Hb/platelets postoperatively, mild drift. Receiving blood transfusion this morning
Trend CBC for now
Thrombocytopenia, mild, improving, 94,000 today.
DVT prophylaxis including SCDs
Insulin protocol initiated and ongoing
Transition to SQ/off as indicated per team
Other medical diagnoses:
- Hypertension
- Hyperlipidemia
- Insulin-dependent diabetes mellitus
- Chronic kidney disease stage III. Creatinine slightly up to 1.6, improving from last evening at 1.7.
- Aortic stenosis, mild to moderate
- BMI 32.7, high pretest probability of underlying sleep disordered breathing. Patient reports napping during daytime, feels tired during daytime and excessive sleepiness. Will pursue sleep study as outpatient. Follow-up information added to the
chart.
- Mild thrombocytopenia, stable
Critical Care time 40 mins -- The patient is admitted for acute critical illness for the treatment of vital organ failure and/or prevention of further life-threatening conditions. Total care includes time spent in review of history, physical exam,
medications, hemodynamic/ventilator parameters, laboratory data, imaging and discussion with house staff, pharmacy, respiratory therapy, inspector shells, and nursing
Data:
Carotid US 12/2024: RIGHT: Calcified plaque is identified in the internal carotid artery. Carotid velocity measurements are consistent with less than 50% internal carotid artery stenosis. Vertebral artery flow is antegrade.
LEFT: Calcified plaque is identified at the carotid bulb and internal carotid artery. Carotid velocity measurements are consistent with less than 50% internal carotid artery stenosis. Vertebral artery flow is antegrade.
Subjective Dataa
Subjective Data
Date of Service:
Date of Service: January 13, 2025
Subjective:
Patient comfortably lying in bed in no acute distress.
Review of Systems
Genitourinary: Other (Has mild cough.)
Objective Data
Data Reviewed
Vital Signs / I&O / Oxygen:
Vital Signs
Temp Pulse Resp BP Pulse Ox
99.9 F 102 22 110/48 94
01/13/25 08:10 01/13/25 08:10 01/13/25 08:10 01/13/25 08:10 01/13/25 08:10
Intake and Output
01/12/25 01/13/25 01/14/25
06:59 06:59 06:59
Intake Total 2851.7 / 2886.6 1065.8 / 1065.8 50.2 / 50.2
Output Total 2064 1580 / 1580 45 / 45
Balance 786.7 / 781.6 -514.2 / -514.2 5.2 / 5.2
SaO2 [CPAP/PSV] 94
SaO2 [SIMV] 99
SaO2 94
Nasal Cannula flow liters per 2
minute
Physical Exam
General: Comfortable
HEENT: Normocephalic
Cardiovascular: S1-S2 and Peripheral Edema (Trace edema)
Respiratory: Clear
GI: Soft and Non Distended
Neurology: Awake and Alert
Skin: Warm
Labs/Micro/Reports
Lab Data
01/13/25 03:07
01/13/25 03:07
[2025-01-13 09:09] LABS: Glucose - Point of Care 109 mg/dl (70-99)
[2025-01-13] MEDS: NOVOLOG FLEXPEN 4 UNITS SC ×2 (09:56→17:18)
[2025-01-13 09:57] LABS: Glucose - Point of Care 161 mg/dl (70-99)
--- NOTE | 2025-01-13 10:32 | PTCARENOTE ---
Transfused with 1 unit PRBC'sLt radial A line removed, manual pressure applied and hemostasis achieved w/o issue. Rt IJ swjennifer then rmoved as per order. Assist x 2 oob to chair , initial dizziness resolved w/o issue.
[2025-01-13] MEDS: KCL 20 MEQ PO (11:07)
[2025-01-13] MEDS: LASIX 40 MG IV (11:07)
[2025-01-13 11:12] LABS: Glucose - Point of Care 169 mg/dl (70-99)
[2025-01-13] MEDS: FLEXERIL 5 MG PO (11:28)
[2025-01-13] MEDS: NSS IV (11:39)
--- NOTE | 2025-01-13 12:24 | PTCARENOTE ---
Medicated for pain, assist x 2 back to bed from chair. No dumping noted from chest tubes with ambulating . VSS. Will continue to monitor.
[2025-01-13 13:08] LABS: Glucose - Point of Care 173 mg/dl (70-99)
[2025-01-13] MEDS: NOVOLOG FLEXPEN SC (13:14)
--- NOTE | 2025-01-13 14:15 | PTCARENOTE ---
Chest tubes removed per MD order. Pt tolerated w/o issue. resting in bed post
[2025-01-13 14:53] LABS: Glucose - Point of Care 130 mg/dl (70-99)
--- NOTE | 2025-01-13 16:44 | PTCARENOTE ---
Pt expressing extreme worry about initiating his Omni pod. Requesting to hold off until the am. Talked at length with him and his and CT AIRFRAME AND POWERPLANT TECHNICIAN. Will keep insulin drip per gylcemic protocol. VSS. Assessment otherwise unchanged from prior.
[2025-01-13 17:10] LABS: Glucose - Point of Care 152 mg/dl (70-99)
[2025-01-13] MEDS: ROXICODONE 5 MG PO (17:44)
[2025-01-13 18:55] LABS: Glucose - Point of Care 166 mg/dl (70-99)
--- NOTE | 2025-01-13 20:00 | PTCARENOTE ---
Assumed care of patient at 1900. Patient found resting in bed at time of assessment. Patient is AOx4, follows commands appropriately, moves all extremities. Lung sounds are diminished thorughout, saO2 95% on 2L via NC. Heart sounds are audible,
patient is SR/ST on the monitor, normal palpable radial pulses and weak but palpable DP pulses. Patient has +1 generalized anasarca and +1 edema present in the hands. There are active BS present through all four quadrants of firm abdomen. Patient is
voiding in urinal. There is an aquacell dressing over sternal incision that is CDI, ABD dressing over CT wounds that is CDI, bilateral groin punctures approx with surg adhesive ENDLESS BED DRUM SANDER, and bilateral leg incisions approx with surg adhesive ENDLESS BED DRUM SANDER. There is
a R IJ cordis receiving KVO and L hand PIV receiving insulin gtt. VSS. Call de jesus within reach.
[2025-01-13 20:26] LABS: Glucose - Point of Care 165 mg/dl (70-99)
[2025-01-13] MEDS: MAGNESIUM OXIDE 400 MG PO (20:26)
[2025-01-13 21:18] LABS: Glucose - Point of Care 135 mg/dl (70-99)
[2025-01-13 22:17] LABS: Glucose - Point of Care 116 mg/dl (70-99)
[2025-01-13] MEDS: NSS 500 IV (22:52)
[2025-01-13] MEDS: SYNTHROID 50 MCG PO (22:53)
[2025-01-13] MEDS: ZETIA 10 MG PO (22:53)
[2025-01-13] MEDS: LIPITOR 10 MG PO (22:53)
[2025-01-13 23:02] LABS: Glucose - Point of Care 109 mg/dl (70-99)
[2025-01-14] VITALS (26 sets, daily range): BP systolic 99–187; BP diastolic 53–131; BMI 34.8
--- NOTE | 2025-01-14 | PTCARENOTE ---
Patient reassessed. VSS. No c/o pain. Call de jesus within reach. Remains SR on the monitor.
[2025-01-14 01:09] LABS: Glucose - Point of Care 79 mg/dl (70-99)
[2025-01-14 02:11] LABS: Glucose - Point of Care 97 mg/dl (70-99)
[2025-01-14 03:04] LABS: Glucose - Point of Care 103 mg/dl (70-99)
[2025-01-14 03:40] LABS: Hematocrit 25.2 % (39.0-52.0); Hemoglobin 8.6 g/dL (13.0-18.0); Mean Corp Hgb Conc. 34.1 g/dL (33.0-37.0); Mean Corpuscular Volume 89.0 fL (80.0-94.0); Platelet Count 103 10^3/uL (130-400); Red Cell Dist. Width 15.0 % (11.5-14.5)
[2025-01-14 03:42] LABS: Blood Urea Nitrogen 41 mg/dl (9-20); Calcium 8.5 mg/dl (8.4-10.2); Carbon Dioxide 26 mmol/L (22-30); Chloride 106 mmol/L (98-107); Estimated Creatinine Clearance 56 ml/min; Glucose 95 mg/dl (70-99); Magnesium 2.2 mg/dl (1.6-2.3); Potassium 4.3 mmol/L (3.5-5.1); Sodium 137 mmol/L (135-145); eGFR 48.25
[2025-01-14 04:16] LABS: Glucose - Point of Care 120 mg/dl (70-99)
--- NOTE | 2025-01-14 05:04 | PTCARENOTE ---
Patient reassessed. VSS. No c/o pain. AM labs obtained. AM hygiene care provided. Call de jesus within reach. Remains SR on the monitor.
[2025-01-14 05:12] LABS: Glucose - Point of Care 120 mg/dl (70-99)
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
[2025-01-14] MEDS: LASIX 40 MG IV (05:55)
[2025-01-14] MEDS: TYLENOL 975 MG PO ×3 (05:55→19:39)
[2025-01-14] MEDS: NOVOLIN R INSULIN INFUSION 100 IV (05:56)
[2025-01-14 07:42] LABS: Glucose - Point of Care 140 mg/dl (70-99)
--- NOTE | 2025-01-14 08:30 | PTCARENOTE ---
Received pt from grade checker RN; pt AAOx3 and resting comfortably in chair; NSR on monitor and VSS; RIJ Cordis and PIV patent; Insulin infusing see flow sheet for details; Lungs diminished; IS to 1000; hypoactive bowel sounds; pt voiding yellow
urine; palpable pulses throughout; +1 generalized edema noted; all surgical sites C/D/I; see nursing documentation for further details.
[2025-01-14] MEDS: PLAVIX 75 MG PO (08:41)
[2025-01-14] MEDS: LOW STRENGTH ASPIRIN 81 MG PO (08:42)
[2025-01-14] MEDS: PROTONIX 40 MG PO (08:42)
[2025-01-14] MEDS: SENOKOT 8.6 MG PO ×2 (08:42→19:39)
[2025-01-14] MEDS: LIDOCAINE 4% PATCH 1 PATCH TOPICAL (08:42)
[2025-01-14] MEDS: PACERONE 200 MG PO ×3 (08:42→22:20)
[2025-01-14] MEDS: LOPRESSOR 12.5 MG PO (08:42)
[2025-01-14] MEDS: NEURONTIN 100 MG PO ×3 (08:42→22:19)
[2025-01-14] MEDS: MAGNESIUM OXIDE 400 MG PO ×2 (08:42→19:39)
[2025-01-14] MEDS: CYMBALTA DELAYED RELEASE 60 MG PO (08:42)
[2025-01-14] MEDS: BACTROBAN 2% OINTMENT 1 APPLIC NASAL ×2 (08:43→19:39)
[2025-01-14 08:56] LABS: Glucose - Point of Care 129 mg/dl (70-99)
--- NOTE | 2025-01-14 09:06 | PTCARENOTE ---
A-fib on monitor and VSS; Amiodarone bolus and drip ordered by CTPA.
--- NOTE | 2025-01-14 09:27 | W.PN.INTV ---
Addendum entered and electronically signed by Tyler Banda MD 01/15/25 09:39:
- Patient transferred to telemetry service
- Automotive Welder service will be available as needed.
- Outpatient follow-up with [facility] pulmonary clinic
Original Note:
Today's Communication / Plan
Recommendations
- Amiodarone infusion for atrial fibrillation with rapid ventricular rate
- Incentive spirometry
- Wean oxygen as tolerated
Assessment
-
Patient is a 74-year-old gentleman with extensive past medical history who had a coronary catheterization performed in November 2024 that demonstrated severe coronary artery disease involving all his major arteries. Of note his calcium score is more
than 4000. Patient also noted to have concurrent aortic valve stenosis. He was evaluated by CT surgery services outpatient and today was admitted to the hospital for coronary revascularization and aortic valve replacement. Postprocedure, patient
was admitted to the ICU and builder operator service was consulted for further input.
Patient is a 74-year-old gentleman with severe multivessel coronary artery disease as well as mild to moderate aortic stenosis, s/p CABG and left atrial appendage exclusion POD # 3
Titrated off pressors per protocol, currently MAP of 103, not requiring any pressor support.
ECHO reviewed with normal LVEF
PA catheter removed.
Management of chest tubes per primary service
#. A fib with RVR 01/14. Patient noted to be in atrial fibrillation during my evaluation, rapid ventricular rate around 160, hemodynamically stable, MAP of 103. Amiodarone infusion being started, continue telemetry monitoring
Extubated, currently on 2 L supplemental oxygen, 96% saturation. No respiratory distress or cough reported. Chest x-ray essentially unchanged
Maintain supplement oxygen as needed
No prior known history of pulmonary disease, smoked briefly in early years, quit 35 years ago.
Can add nebulizers if needed
Aspiration precautions
Encouraged incentive spirometry, OOB/ambulation/early mobility
Advance diet as tolerated following extubation
GI prophylaxis: Protonix
Monitor critical I/O's
Velazquez/chest tube output
Hb/platelets postoperatively, mild drift. Receiving blood transfusion this morning
Trend CBC for now
Thrombocytopenia, mild, improving, 94,000 today.
DVT prophylaxis including SCDs
Insulin protocol initiated and ongoing
Transition to SQ/off as indicated per team
Other medical diagnoses:
- Hypertension
- Hyperlipidemia
- Insulin-dependent diabetes mellitus
- Chronic kidney disease stage III. Creatinine 1.5 today, continue to monitor
- Aortic stenosis, mild to moderate
- BMI 32.7, high pretest probability of underlying sleep disordered breathing. Patient reports napping during daytime, feels tired during daytime and excessive sleepiness. Will pursue sleep study as outpatient. Follow-up information added to the
chart.
- Mild thrombocytopenia, improving
Critical Care time 38 mins -- The patient is admitted for acute critical illness for the treatment of vital organ failure and/or prevention of further life-threatening conditions. Total care includes time spent in review of history, physical exam,
medications, hemodynamic/ventilator parameters, laboratory data, imaging and discussion with house staff, pharmacy, respiratory therapy, multifocal button generator, and nursing
Data:
Carotid US 12/2024: RIGHT: Calcified plaque is identified in the internal carotid artery. Carotid velocity measurements are consistent with less than 50% internal carotid artery stenosis. Vertebral artery flow is antegrade.
LEFT: Calcified plaque is identified at the carotid bulb and internal carotid artery. Carotid velocity measurements are consistent with less than 50% internal carotid artery stenosis. Vertebral artery flow is antegrade.
Subjective Dataa
Subjective Data
Date of Service:
Date of Service: January 14, 2025
Subjective:
Patient sitting in chair in no acute distress. Noted to be tachycardic in atrial fibrillation with rapid ventricular rate
Review of Systems
Genitourinary: Other (All 14 systems reviewed and negative except as stated above in the history of present illness.)
Objective Data
Data Reviewed
Vital Signs / I&O / Oxygen:
Vital Signs
Temp Pulse Resp BP Pulse Ox
98 F 93 22 141/61 97
01/14/25 08:00 01/14/25 08:42 01/14/25 08:00 01/14/25 08:42 01/14/25 09:22
Intake and Output
01/13/25 01/14/25 01/15/25
06:59 06:59 06:59
Intake Total 1065.8 / 1065.8 1137.2 / 1137.2
Output Total 1580 / 1580 1345 / 1345 650 / 650
Balance -514.2 / -514.2 -207.8 / -207.8 -634 / -634
SaO2 [CPAP/PSV] 94
SaO2 [SIMV] 99
SaO2 97
Nasal Cannula flow liters per 2
minute
Physical Exam
General: Comfortable
HEENT: Normocephalic
Cardiovascular: S1-S2 and Peripheral Edema (Trace edema)
Respiratory: Clear
GI: Soft and Non Distended
Neurology: Awake and Alert
Skin: Warm
Labs/Micro/Reports
Lab Data
01/14/25 03:05
01/14/25 03:05
[2025-01-14] MEDS: MAGNESIUM SULFATE 50 IV (09:32)
[2025-01-14] MEDS: CORDARONE 103 MG IV (09:32)
[2025-01-14] MEDS: CORDARONE 518 MG IV (09:38)
[2025-01-14 11:09] LABS: Glucose - Point of Care 213 mg/dl (70-99)
--- NOTE | 2025-01-14 11:12 | PTCARENOTE ---
Pt's at bedside and placed pt own Dexcom on Right lower abdomen and Insulin pump on left lower abdomen; CTPA reordered Insulin pump orders and insulin paperwork at bedside.
[2025-01-14 11:59] LABS: Glucose - Point of Care 194 mg/dl (70-99)
--- NOTE | 2025-01-14 12:14 | PTCARENOTE ---
Assessment unchanged; pt resting comfortably in chair with family at bedside; NSR on monitor and VSS.
[2025-01-14] MEDS: PATIENT'S OWN INSULIN PUMP 14 UNITS SC (12:45)
--- NOTE | 2025-01-14 14:05 | W.PN.CD ---
Today's Communication / Plan
-
Patient with A-fib with RVR today. Spontaneously converted back to sinus rhythm after IV amiodarone.
Continue amiodarone and beta-zeyad
And consider anticoagulation at discharge
Impression / Plan
-
Impression/Plan: 74 y/o male with HTN, HLD, IDDM, moderate aortic valve stenosis and multivessel CAD admitted for elective CABG.
#CAD s/p CABG x 5 on 01/11/25:
-Chronic, progressive.
-S/P CABG x5 (SANTACRUZ to LAD, SVG to D1, SVG to OM1, SVG to OM3, SVG to LPL/OM3) with Dr. Davies, 01/11/2025.
-S/P LAAE (#40 AtriCure AtriClip; LOT [id number]).
-Continue amiodarone, aspirin, atorvastatin, clopidogrel, ezetimibe, metoprolol.
# Atrial fibrillation.
- New onset postoperative atrial fibrillation with RVR 01/14/2025. Responded to IV amiodarone with conversion back to sinus rhythm.
- Continue current therapy and monitor for recurrence.
#Hypertension: Continue to monitor.
#Hyperlipidemia:
-Chronic, stable.
-Continue atorvastatin
-Goal LDL < 55.
#IDDM
-Chronic, stable.
-Insulin per protocol.
-Resume dapagliflozin.
-Role for GLP-1 agonists.
#CKD. Stable ranging from 1.4-1.7 this admission. Creatinine 1.5 on 01/14/2025
Subjective/Interval History:
Weight is up 7.3 kg from baseline.
SaO2 94% on 2LNC.
Hbg down to 7.4.
Plt down to 94k.
Creatinine 1.6 (appears close to baseline).
DATA:
CT Surgery, 01/11/2025:
PROCEDURES:
1. Median sternotomy
2. Takedown of ANTWON (narrow pedicle)
3. Endoscopic harvest/prep of RLE GSV
4. Endoscopic harvest/prep of LLE GSV
5. CABG x 5 (ANTWON to LAD, GSV to D1, GSV to OM1, GSV to OM2, GSV to
LPLB/OM3)
6. ELAA w/ 40mm AtriClip
7. Separation from CPB - decannulation
8. Re-establishement of CPB
9. Pump-assist, beating repair of heel of graft to OM2
10. Separation from CPB - decannulation
11. Sternal closure.
Physical Exam
Vital Signs/Labs
Vital Signs
Temp Pulse Resp BP Pulse Ox
98.5 F 79 20 124/70 97
01/14/25 12:37 01/14/25 12:35 01/14/25 12:37 01/14/25 12:00 01/14/25 12:37
01/13/25 01/14/25 01/15/25
06:59 06:59 06:59
Actual Weight 116.8 kg 116.4 kg
01/14/25 03:05
01/14/25 03:05
PT 17.7 Sec (11.4-14.6) H 01/11/25 20:59
INR 1.40 01/11/25 20:59
APTT 32.1 Sec (23.4-35.0) 01/11/25 20:59
Magnesium 2.2 mg/dl (1.6-2.3) 01/14/25 03:05
Physical Exam
Constitutional: No acute distress
Cardiovascular: Rhythm & rate is regular
Respiratory: Wheeze Absent and Rhonchi Absent
GI: Soft
Neuro/Psych: Alert
Data Reviewed
-
Date of Service: January 14, 2025
--- NOTE | 2025-01-14 15:47 | PTCARENOTE ---
Assessment unchanged; pt resting comfortably in chair with at bedside; NSR on monitor and VSS>
[2025-01-14 17:18] LABS: Glucose - Point of Care 238 mg/dl (70-99)
[2025-01-14] MEDS: PATIENT'S OWN INSULIN PUMP SC ×2 (17:47→22:20)
--- NOTE | 2025-01-14 18:58 | PTCARENOTE ---
Pt discharged to home with .
[2025-01-14] MEDS: LOPRESSOR 25 MG PO (19:39)
--- NOTE | 2025-01-14 20:00 | PTCARENOTE ---
Assumed care of patient at 1900. Patient found resting in bed at time of assessment. Patient is AOx4, follows commands appropriately, moves all extremities. Lung sounds are diminished throughout, IS 2000, saO2 97% on 2L. Heart sounds are audible,
patient is SR on the monitor, normal palpable radial pulses and weak but palpable dorsalis pedis pulses. Patient has +1 generalized anasarca and +1 edema present in the bilateral hands. Patient has active BS in all four quadrants of firm round
abdomen. Patient is voiding in the urinal. There is an aquacell dressing over sternal incision that is CDI, ABD dressing over CT wounds that is CDI, bilateral groin punctures approx with surg adhesive JACQUELYN, and bilateral leg incisions approx with
surg adhesive JACQUELYN. Patient has R IJ cordis receiving KVO and L hand PIV. No c/o pain. VSS. Call de jesus within reach.
[2025-01-14 22:15] LABS: Glucose - Point of Care 210 mg/dl (70-99)
[2025-01-14] MEDS: ZETIA 10 MG PO (22:19)
[2025-01-14] MEDS: LIPITOR 10 MG PO (22:19)
[2025-01-14] MEDS: SYNTHROID 50 MCG PO (22:19)
[2025-01-15] VITALS (9 sets, daily range): BP systolic 98–159; BP diastolic 50–130; PULSE 78–84; BMI 34.4
--- NOTE | 2025-01-15 01:00 | PTCARENOTE ---
Patient reassessed. VSS. Remains SR on the monitor. 100 uop documented with some undocumented urine spilling out of urinal.
[2025-01-15 03:09] LABS: Glucose - Point of Care 202 mg/dl (70-99)
[2025-01-15 03:34] LABS: Hematocrit 24.3 % (39.0-52.0); Hemoglobin 8.2 g/dL (13.0-18.0); Mean Corp Hgb Conc. 33.7 g/dL (33.0-37.0); Mean Corpuscular Volume 89.7 fL (80.0-94.0); Platelet Count 112 10^3/uL (130-400); Red Cell Dist. Width 14.9 % (11.5-14.5)
[2025-01-15 04:03] LABS: Calcium 8.0 mg/dl (8.4-10.2); Carbon Dioxide 26 mmol/L (22-30); Chloride 103 mmol/L (98-107); Estimated Creatinine Clearance 56 ml/min; Glucose 174 mg/dl (70-99); Magnesium 2.6 mg/dl (1.6-2.3); Potassium 3.9 mmol/L (3.5-5.1); Sodium 133 mmol/L (135-145); eGFR 48.25
[2025-01-15 04:14] LABS: Blood Urea Nitrogen 43 mg/dl (9-20)
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
[2025-01-15] MEDS: TYLENOL 975 MG PO ×3 (06:27→20:22)
--- NOTE | 2025-01-15 06:44 | PTCARENOTE ---
Patient reassessed. VSS. AM labs obtained. AM hygiene care provided. OOB to chair without incident. Call de jesus within reach.
[2025-01-15] MEDS: MAGNESIUM OXIDE 400 MG PO ×2 (08:33→20:23)
[2025-01-15] MEDS: SENOKOT 8.6 MG PO ×2 (08:33→20:23)
[2025-01-15] MEDS: CYMBALTA DELAYED RELEASE 60 MG PO (08:33)
[2025-01-15] MEDS: NEURONTIN 100 MG PO ×3 (08:33→21:53)
[2025-01-15] MEDS: PACERONE 200 MG PO ×3 (08:33→21:53)
[2025-01-15] MEDS: KCL 40 MEQ PO (08:33)
[2025-01-15] MEDS: PLAVIX 75 MG PO (08:33)
[2025-01-15] MEDS: BACTROBAN 2% OINTMENT 1 APPLIC NASAL (08:33)
[2025-01-15] MEDS: LOW STRENGTH ASPIRIN 81 MG PO (08:33)
[2025-01-15] MEDS: PROTONIX 40 MG PO (08:33)
[2025-01-15] MEDS: LASIX 40 MG IV (08:34)
--- NOTE | 2025-01-15 08:40 | W.PN.CD ---
Today's Communication / Plan
-
Remains in sinus with no evidence of recurrent A-fib overnight. Patient had short episode on 01/14/2025 that had responded to IV amiodarone.
Continue current dosing of amiodarone and beta-zeyad
Monitor hemoglobin which is 8.2 this morning.
Impression / Plan
-
Impression/Plan: 74 y/o male with HTN, HLD, IDDM, moderate aortic valve stenosis and multivessel CAD admitted for elective CABG.
#CAD s/p CABG x 5 on 01/11/25:
-Chronic, progressive.
-S/P CABG x5 (SANTACRUZ to LAD, SVG to D1, SVG to OM1, SVG to OM3, SVG to LPL/OM3) with Dr. Davies, 01/11/2025.
-S/P LAAE (#40 AtriCure AtriClip; LOT [id number]).
-Continue amiodarone, aspirin, atorvastatin, clopidogrel, ezetimibe, metoprolol.
# Atrial fibrillation.
- New onset postoperative atrial fibrillation with RVR 01/14/2025. Responded to IV amiodarone with conversion back to sinus rhythm in a.m. 01/14/2025.
- Continue current therapy and monitor for recurrence.
# Anemia. Postop anemia. Down to 8.2 today. Continue to monitor closely. Decisions regarding PRBCs being directed by CT surgery.
#Hypertension: Continue to monitor.
#Hyperlipidemia:
-Chronic, stable.
-Continue atorvastatin
-Goal LDL < 55.
#IDDM
-Chronic, stable.
-Insulin per protocol.
-Resume dapagliflozin.
-Role for GLP-1 agonists.
#CKD. Stable ranging from 1.4-1.7 this admission. Creatinine 1.5 on 01/14/2025
Subjective/Interval History:
Weight is up 7.3 kg from baseline.
SaO2 94% on 2LNC.
Hbg down to 7.4.
Plt down to 94k.
Creatinine 1.6 (appears close to baseline).
DATA:
CT Surgery, 01/11/2025:
PROCEDURES:
1. Median sternotomy
2. Takedown of ANTWON (narrow pedicle)
3. Endoscopic harvest/prep of RLE GSV
4. Endoscopic harvest/prep of LLE GSV
5. CABG x 5 (ANTWON to LAD, GSV to D1, GSV to OM1, GSV to OM2, GSV to
LPLB/OM3)
6. ELAA w/ 40mm AtriClip
7. Separation from CPB - decannulation
8. Re-establishement of CPB
9. Pump-assist, beating repair of heel of graft to OM2
10. Separation from CPB - decannulation
11. Sternal closure.
Physical Exam
Vital Signs/Labs
Vital Signs
Temp Pulse Resp BP Pulse Ox
98.2 F 75 20 108/50 95
01/15/25 08:00 01/15/25 08:30 01/15/25 08:00 01/15/25 07:44 01/15/25 08:30
01/14/25 01/15/25 01/16/25
06:59 06:59 06:59
Actual Weight 116.4 kg 115.1 kg
01/15/25 03:09
01/15/25 03:09
PT 17.7 Sec (11.4-14.6) H 01/11/25 20:59
INR 1.40 01/11/25 20:59
APTT 32.1 Sec (23.4-35.0) 01/11/25 20:59
Magnesium 2.6 mg/dl (1.6-2.3) H 01/15/25 03:09
Physical Exam
Constitutional: No acute distress
Cardiovascular: Rhythm & rate is regular
Respiratory: Wheeze Absent and Rhonchi Absent
GI: Soft
Neuro/Psych: Alert
Data Reviewed
-
Date of Service: January 15, 2025
Medical Decision Making: Reviewed Test Results and Review of Case with other Provider (Discussion with nurse regarding management and discussion with CT PA)
EKG: Report Reviewed by me
X-Ray/CT/US/MRI/NUC/PET: Report Reviewed by me
Medical Tests (PFT, Pathology etc): Report Reviewed by me
Labs: Labs Reviewed by me
[2025-01-15 08:45] LABS: Glucose - Point of Care 204 mg/dl (70-99)
[2025-01-15] MEDS: TOPROL XL 25 MG PO (08:50)
--- NOTE | 2025-01-15 09:55 | PTCARENOTE ---
Received pt from night court magistrate RN at 0700; pt AAOX3 and rest comfortably in chair; NSR on monitor and VSS: RIJ Cordis and PIV x1 patent; Amiodarone infusing see flow sheet for details; Lungs diminished; IS to 1500; hypoactive bowel sounds; pt voiding
yellow urine; +1 generalized edema; weak DP and positive radial pulses; all surgical sites C/D/I; see nursing documentation for further details.
[2025-01-15] MEDS: PATIENT'S OWN INSULIN PUMP 13.3 UNITS SC (10:04)
--- NOTE | 2025-01-15 12:52 | PTCARENOTE ---
NSR on monitor and VSS; assessment unchanged; pt worked with PT/OT.
[2025-01-15] MEDS: PATIENT'S OWN INSULIN PUMP 17.7 UNITS SC (13:37)
[2025-01-15 13:39] LABS: Glucose - Point of Care 225 mg/dl (70-99)
[2025-01-15] MEDS: NSS IV (15:30)
--- NOTE | 2025-01-15 16:31 | PTCARENOTE ---
NSR on monitor and VSS; assessment unchanged; RIJ Cordis removed per CTPA order; family at bedside.
[2025-01-15 17:03] LABS: Glucose - Point of Care 257 mg/dl (70-99)
[2025-01-15] MEDS: PATIENT'S OWN INSULIN PUMP 11.3 UNITS SC (17:10)
[2025-01-15] MEDS: FARXIGA 10 MG PO (17:11)
--- NOTE | 2025-01-15 20:00 | PTCARENOTE ---
assumed care of patient at 1900 from prior RN. Patient alert and oriented follows all commands has termor at baseline, needs assists holding and taking pills. Normal Sinus rhythm, BP stable with in normal limits. on 2 L NC SpO2 96%, lungs sound
dimimished at bases but clear, can wheeze on exertion , but passed without treatment. surgial sites CDI Voiding in urinal clear yellow.
[2025-01-15] MEDS: ZETIA 10 MG PO (21:52)
[2025-01-15] MEDS: SYNTHROID 50 MCG PO (21:55)
[2025-01-15] MEDS: LIPITOR 10 MG PO (21:56)
[2025-01-15 21:57] LABS: Glucose - Point of Care 149 mg/dl (70-99)
[2025-01-15] MEDS: PATIENT'S OWN INSULIN PUMP SC (22:20)
[2025-01-16] VITALS (14 sets, daily range): BP systolic 97–153; BP diastolic 53–110; PULSE 80–83; O2SAT 96; BMI 34.6
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
[2025-01-16 04:22] LABS: Hematocrit 24.5 % (39.0-52.0); Hemoglobin 8.3 g/dL (13.0-18.0); Mean Corp Hgb Conc. 33.9 g/dL (33.0-37.0); Mean Corpuscular Volume 89.4 fL (80.0-94.0); Platelet Count 131 10^3/uL (130-400); Red Cell Dist. Width 15.1 % (11.5-14.5)
[2025-01-16 04:40] LABS: Blood Urea Nitrogen 40 mg/dl (9-20); Calcium 7.8 mg/dl (8.4-10.2); Carbon Dioxide 29 mmol/L (22-30); Chloride 104 mmol/L (98-107); Estimated Creatinine Clearance 56 ml/min; Glucose 104 mg/dl (70-99); Magnesium 2.7 mg/dl (1.6-2.3); Potassium 3.9 mmol/L (3.5-5.1); Sodium 137 mmol/L (135-145); eGFR 48.25
[2025-01-16] MEDS: TYLENOL 975 MG PO ×3 (05:45→21:01)
--- NOTE | 2025-01-16 06:30 | PTCARENOTE ---
patient resting, morning labs drawn, Left IV leaking and removed, New IV started,
[2025-01-16] MEDS: CALCIUM GLUCONATE 100 IV (06:42)
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
[2025-01-16] MEDS: TOPROL XL 25 MG PO (08:45)
[2025-01-16] MEDS: PACERONE 200 MG PO ×3 (08:45→21:03)
[2025-01-16] MEDS: PLAVIX 75 MG PO (08:45)
[2025-01-16] MEDS: LASIX 40 MG PO (08:45)
[2025-01-16] MEDS: PROTONIX 40 MG PO (08:45)
[2025-01-16] MEDS: CYMBALTA DELAYED RELEASE 60 MG PO (08:45)
[2025-01-16] MEDS: FARXIGA 10 MG PO (08:45)
[2025-01-16] MEDS: LOW STRENGTH ASPIRIN 81 MG PO (08:46)
[2025-01-16] MEDS: SENOKOT 8.6 MG PO (08:46)
[2025-01-16] MEDS: NEURONTIN 100 MG PO ×3 (08:46→21:03)
[2025-01-16] MEDS: NSS IV (08:46)
--- NOTE | 2025-01-16 09:00 | PTCARENOTE ---
Patient received from retail shift supervisor resting in bed, AAO x 3, states pain controlled at this time. NSR via cm, SaO2 @ 94% on 2lnc. All procedural sites stable. Patient assisted oob to chair x 2 assist, breakfast ordered. Patient updated to plan of care
for the day, in agreement. See work list for full assessment and interventions performed.
[2025-01-16 09:34] LABS: Glucose - Point of Care 139 mg/dl (70-99)
--- NOTE | 2025-01-16 09:51 | W.PN.CD ---
Today's Communication / Plan
-
Agree with diuresis
Agree with nebulizer
Watch H/H
Watch tele for AFib
Impression / Plan
-
Background: 74 y/o male with HTN, HLD, IDDM, moderate aortic valve stenosis and multivessel CAD admitted for elective CABG.
CAD s/p CABG x 5 on 01/11/25:
-S/pCABG x5 (SANTACRUZ to LAD, SVG to D1, SVG to OM1, SVG to OM3, SVG to LPL/OM3) and AtriClip with Dr. Davies, 01/11/2025
Brief post op AFIb
- No recurrence
Post-op anemia, gi bleeding not suspected
HTN
Mixed hyperlipidemia, goal LDL < 55 => continue statin
DM, Type II on insulin and oral meds
CKD, baseline Cr 1.4-1.7
Wheezer, he has used bronchodilator at home
Obesity, BMI 32-34
Subjective/Interval Hx:
Feels well. LE edema and wheezing on exam, tele quiet
Physical Exam
Vital Signs/Labs
Vital Signs
Temp Pulse Resp BP Pulse Ox
99 F 84 18 117/64 94
01/16/25 08:12 01/16/25 08:45 01/16/25 08:12 01/16/25 08:45 01/16/25 08:15
01/15/25 01/16/25 01/17/25
06:59 06:59 06:59
Actual Weight 115.1 kg 115.6 kg
01/16/25 03:53
01/16/25 03:53
PT 17.7 Sec (11.4-14.6) H 01/11/25 20:59
INR 1.40 01/11/25 20:59
APTT 32.1 Sec (23.4-35.0) 01/11/25 20:59
Magnesium 2.7 mg/dl (1.6-2.3) H 01/16/25 03:53
Physical Exam
Constitutional: No acute distress
EENT: Anicteric
Cardiovascular: Rhythm & rate is regular and Pedal edema present
Respiratory: Respiratory effort normal and Wheeze Present
GI: Soft and Non tender
Neuro/Psych: AO x 3
Data Reviewed
-
Date of Service: January 16, 2025
[2025-01-16] MEDS: PATIENT'S OWN INSULIN PUMP 4.05 UNITS SC (10:04)
[2025-01-16] MEDS: FLEXERIL 5 MG PO (12:08)
--- NOTE | 2025-01-16 12:15 | PTCARENOTE ---
VS obtained, assessment unchanged.
--- NOTE | 2025-01-16 12:25 | CM ---
Reviewed chart. Met with and Mrs Singh to review discharge plans. He states he is feeling well. We reviewed medical team recommendation of Acute Rehab. He is agreeable to having a referral made to [facility] at [place]. We also reviewed
the role insurance play in the approval process. We reviewed SNF/Rehab. if not approved for acute rehab. Telephone call to [facility] Liaison to make the referral. Sent the referral. Will need to pre-cert with his insurance. Awaiting PM&R
evaluation and [facility] decision regarding ability to accept. Medical work-up in progress. The discharge plan is to go to [facility] if bed available, and approved for admission by his insurance.
[2025-01-16 13:05] LABS: Glucose - Point of Care 188 mg/dl (70-99)
[2025-01-16] MEDS: PATIENT'S OWN INSULIN PUMP 1.5 UNITS SC (13:09)
--- NOTE | 2025-01-16 16:12 | PTCARENOTE ---
VS obtained, assessment stable. Patient resting comfortably, at bedside.
[2025-01-16 17:15] LABS: Glucose - Point of Care 163 mg/dl (70-99)
[2025-01-16] MEDS: PATIENT'S OWN INSULIN PUMP 15.4 UNITS SC (17:35)
--- NOTE | 2025-01-16 20:30 | PTCARENOTE ---
received pt from previous rn. Pt AAOx3, NSR per tele monitor HR 80s. VSS, +pulses, trace edema, pox 95% on 1L NC. lungs diminished. occasional productive cough IS 1500. +bs, pt voiding in urinal. all surgical sites intact. piv intact. plan of care
reviewed and questions encouraged. see worklist for full assessment and interventions performed.
[2025-01-16] MEDS: SENOKOT PO (20:44)
[2025-01-16] MEDS: KCL 40 MEQ PO (21:00)
[2025-01-16] MEDS: ZETIA 10 MG PO (21:02)
[2025-01-16] MEDS: LIPITOR 10 MG PO (21:02)
[2025-01-16] MEDS: TOPROL XL 12.5 MG PO (21:03)
[2025-01-16] MEDS: SYNTHROID 50 MCG PO (21:03)
[2025-01-16 21:13] LABS: Glucose - Point of Care 214 mg/dl (70-99)
[2025-01-16] MEDS: VENTOLIN NEBULES 2.5 MG INH (21:52)
[2025-01-16] MEDS: PATIENT'S OWN INSULIN PUMP SC (23:27)
[2025-01-17] VITALS (7 sets, daily range): BP systolic 87–135; BP diastolic 52–71; PULSE 73–78; BMI 34.5
--- NOTE | 2025-01-17 00:34 | PTCARENOTE ---
pt resting comfortably in bed. VSS, NSR per tele monitor. assessment remains unchanged
--- NOTE | 2025-01-17 04:06 | PTCARENOTE ---
AM labs sent. VSS, NSR per tele monitor, assessment remains unchanged
[2025-01-17 04:24] LABS: Hematocrit 24.8 % (39.0-52.0); Hemoglobin 8.2 g/dL (13.0-18.0); Mean Corp Hgb Conc. 33.1 g/dL (33.0-37.0); Mean Corpuscular Volume 90.5 fL (80.0-94.0); Platelet Count 168 10^3/uL (130-400); Red Cell Dist. Width 15.7 % (11.5-14.5)
[2025-01-17 04:27] LABS: Blood Urea Nitrogen 39 mg/dl (9-20); Calcium 8.1 mg/dl (8.4-10.2); Carbon Dioxide 29 mmol/L (22-30); Chloride 104 mmol/L (98-107); Estimated Creatinine Clearance 56 ml/min; Glucose 111 mg/dl (70-99); Magnesium 2.6 mg/dl (1.6-2.3); Potassium 3.9 mmol/L (3.5-5.1); Sodium 138 mmol/L (135-145); eGFR 48.25
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
[2025-01-17] MEDS: CALCIUM GLUCONATE 100 IV (06:21)
[2025-01-17] MEDS: TYLENOL 975 MG PO ×3 (06:21→19:25)
[2025-01-17] MEDS: KCL 40 MEQ PO (06:21)
[2025-01-17] MEDS: NEURONTIN 100 MG PO ×3 (07:20→22:38)
[2025-01-17] MEDS: LOW STRENGTH ASPIRIN 81 MG PO (07:20)
[2025-01-17] MEDS: LASIX 40 MG PO (07:20)
[2025-01-17] MEDS: PLAVIX 75 MG PO (07:20)
[2025-01-17] MEDS: TOPROL XL 50 MG PO (07:20)
[2025-01-17] MEDS: PROTONIX 40 MG PO (07:20)
[2025-01-17] MEDS: PACERONE 200 MG PO ×2 (07:20→19:25)
[2025-01-17] MEDS: SENOKOT 8.6 MG PO (07:20)
[2025-01-17] MEDS: FARXIGA 10 MG PO (07:20)
[2025-01-17] MEDS: CYMBALTA DELAYED RELEASE 60 MG PO (07:20)
[2025-01-17] MEDS: FLEXERIL 5 MG PO ×2 (07:26→19:34)
[2025-01-17 07:30] LABS: Glucose - Point of Care 112 mg/dl (70-99)
--- NOTE | 2025-01-17 07:38 | PTCARENOTE ---
pt aaox3. states pain 3/10 in left shoulder. Flexeril given as ordered. pt ambulated to chair with one person assist and walker. nc1l breath sounds diminished at base with slight ex wheeze ant. pt wants to keep o2 on for comfort. sternal
dressing intact brusing noted on left groin. bilat leg inc alon clean.
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
[2025-01-17] MEDS: PATIENT'S OWN INSULIN PUMP 3.75 UNITS SC ×3 (10:34→18:29)
--- NOTE | 2025-01-17 10:49 | W.PN.CD ---
Today's Communication / Plan
-
Agree with more diuresis
Impression / Plan
-
Background: 74 y/o male with HTN, HLD, IDDM, moderate aortic valve stenosis and multivessel CAD admitted for elective CABG.
CAD s/p CABG x 5 on 01/11/25:
-S/pCABG x5 (SANTACRUZ to LAD, SVG to D1, SVG to OM1, SVG to OM3, SVG to LPL/OM3) and AtriClip with Dr. Davies, 01/11/2025
Brief post op AFIb
- No recurrence
Post-op anemia, gi bleeding not suspected
HTN
Mixed hyperlipidemia, goal LDL < 55 => continue statin
DM, Type II on insulin and oral meds
CKD, baseline Cr 1.4-1.7
Wheezer, he has used bronchodilator at home
Obesity, BMI 32-34
Subjective/Interval Hx:
Feels well. LE edema and wheezing on exam, tele quiet
Physical Exam
Vital Signs/Labs
Vital Signs
Temp Pulse Resp BP Pulse Ox
97.8 F 80 18 135/67 97
01/17/25 07:38 01/17/25 10:15 01/17/25 08:00 01/17/25 07:20 01/17/25 07:37
01/16/25 01/17/25 01/18/25
06:59 06:59 06:59
Actual Weight 115.3 kg
01/17/25 04:00
01/17/25 04:00
PT 17.7 Sec (11.4-14.6) H 01/11/25 20:59
INR 1.40 01/11/25 20:59
APTT 32.1 Sec (23.4-35.0) 01/11/25 20:59
Magnesium 2.6 mg/dl (1.6-2.3) H 01/17/25 04:00
Physical Exam
Constitutional: No acute distress
Cardiovascular: Rhythm & rate is regular and Pedal edema is absent
Respiratory: Respiratory effort normal and Wheeze Present (but good air entry )
GI: Soft and Distention absent
Neuro/Psych: AO x 3
Data Reviewed
-
Date of Service: January 17, 2025
[2025-01-17] MEDS: NSS IV (12:50)
[2025-01-17] MEDS: LASIX 40 MG IV ×2 (13:08→16:29)
[2025-01-17 13:54] LABS: Glucose - Point of Care 120 mg/dl (70-99)
--- NOTE | 2025-01-17 15:36 | CM ---
Reviewed chart. Met with and Mrs. Blackman to review discharge plans. Telephone call to [facility]. Liaison to check on referral. [facility] Liaison [facility]. Awaiting PM&R evaluation. Will
need to pre-cert with his insurance. Medical work-up in progress. The discharge plan is to go to some level of inpatient rehab. when medically stable.
[2025-01-17] MEDS: KCL 20 MEQ PO (16:29)
[2025-01-17 17:52] LABS: Glucose - Point of Care 108 mg/dl (70-99)
--- NOTE | 2025-01-17 19:15 | PTCARENOTE ---
Patient received from RN @1900. Patient lying in bed w/ call de jesus in reach. AOx3. Patient assist x1 w/ walker. Tremors baseline. SR on monitor. BP 97/52 HR 77. Heart sounds audible. Radial and pedal pulses present. trace generalized edema
noted. Lung sounds diminished in bases w/ wheezes bilaterally. Dyspnea on exertion. POX 91% RA. Left PIV patent and intact. Sternal dressing dry and intact. CT sutures intact. Left groin puncture well approximated JACQUELYN. Right and left knee
incision well approximated THERAPIST PHYSICAL. See worklist for more details.
[2025-01-17] MEDS: SENOKOT PO (19:29)
[2025-01-17] MEDS: LIPITOR 10 MG PO (22:38)
[2025-01-17] MEDS: SYNTHROID 50 MCG PO (22:39)
[2025-01-17] MEDS: ZETIA 10 MG PO (22:39)
[2025-01-17] MEDS: PATIENT'S OWN INSULIN PUMP SC (22:43)
--- NOTE | 2025-01-17 23:37 | PTCARENOTE ---
Patient reassessed. SR on monitor. BP 101/64 HR 75 POX 97% 1L NC.
[2025-01-18] VITALS (8 sets, daily range): BP systolic 92–123; BP diastolic 49–88; PULSE 68; BMI 33.6
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
[2025-01-18 05:18] LABS: Glucose - Point of Care 95 mg/dl (70-99)
--- NOTE | 2025-01-18 05:23 | PTCARENOTE ---
Patient reassessed. SR on monitor. VSS. Labs difficult to obtain. Patient sates they think their blood sugar is low. Blood sugar checked with glucometer 95.
[2025-01-18 05:48] LABS: Blood Urea Nitrogen 34 mg/dl (9-20); Calcium 8.1 mg/dl (8.4-10.2); Carbon Dioxide 26 mmol/L (22-30); Chloride 105 mmol/L (98-107); Estimated Creatinine Clearance 56 ml/min; Glucose 89 mg/dl (70-99); Magnesium 2.3 mg/dl (1.6-2.3); Potassium 3.7 mmol/L (3.5-5.1); Sodium 137 mmol/L (135-145); eGFR 48.25
[2025-01-18] MEDS: TYLENOL 975 MG PO ×3 (06:37→20:40)
[2025-01-18 07:26] LABS: Hematocrit 27.5 % (39.0-52.0); Hemoglobin 8.9 g/dL (13.0-18.0); Mean Corp Hgb Conc. 32.4 g/dL (33.0-37.0); Mean Corpuscular Volume 90.2 fL (80.0-94.0); Platelet Count 213 10^3/uL (130-400); Red Cell Dist. Width 15.9 % (11.5-14.5)
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
--- NOTE | 2025-01-18 08:32 | PTCARENOTE ---
assumed care of pt from previous shift RN, sinus rhythm on tele, VSS. Surgical sites stable, PIV flushes easily. plan of care reviewed and questions encouraged.
[2025-01-18] MEDS: PROTONIX 40 MG PO (08:36)
[2025-01-18] MEDS: LOW STRENGTH ASPIRIN 81 MG PO (08:36)
[2025-01-18] MEDS: CYMBALTA DELAYED RELEASE 60 MG PO (08:36)
[2025-01-18] MEDS: FARXIGA 10 MG PO (08:36)
[2025-01-18] MEDS: PACERONE 200 MG PO ×2 (08:36→20:39)
[2025-01-18] MEDS: NEURONTIN 100 MG PO (08:36)
[2025-01-18] MEDS: PLAVIX 75 MG PO (08:36)
[2025-01-18] MEDS: TOPROL XL 50 MG PO (08:36)
[2025-01-18] MEDS: LASIX 40 MG PO (08:36)
[2025-01-18] MEDS: KCL 20 MEQ PO (08:36)
[2025-01-18] MEDS: NSS IV (08:37)
--- NOTE | 2025-01-18 08:45 | CON.MD ---
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 [Senokot] Med 01/11/25 20:00 Active
8.6 mg PO Q12
�
Vitals:�
Temp Pulse Resp BP Pulse Ox
98.5 F 74 17 117/60 95
01/18/25 04:15 01/18/25 04:12 01/18/25 04:15 01/18/25 04:12 01/18/25 04:15
Height 6 ft
Actual Weight 112.3 kg
Body Mass Index (BMI) 33.6
�
Physical Exam:�
General Appearance/Observation: Well-developed, well-nourished male in no apparent distress on O2 via nasal cannula seated in recliner.�
Pain/Comfort Assessment: Low back-right side, mild incisional sternal pain
Mood/Affect: Appropriate�
�
Integumentary/Operative Site:� CABG incision covered with Aquacel, Drain sites with sutures. Donor sites bilaterally clean, dry, and intact.
�� Pressure Ulcer Evaluation: absent over heels.�
�
Eyes: Conjunctiva/Lids: normal���� Pupils: pupils equal round and reactive to light and Accommodation�
Ears/Nose/Throat: oral mucosa moist,� throat clear.������������ Lips/Teeth/Gums: normal�
Neck: No muscle spasm or tenderness�
Cardiovascular: Heart: regular, no murmur�
Pulses: dorsalis pedis 2+ bilaterally�
Respiratory: Respiratory Effort/Chest Expansion: normal������� Auscultation: decreased BS at bases, Clear to auscultation bilaterally�
Gastrointestinal: abdomen not tender, no distension, normal abdominal bowel sounds
Genitourinary: No Velazquez�
Extremities:�Edema: b/l LE and UE 1+�Cyanosis: None�Trophic�changes: None
�
Neurology Exam:
Orientation: Alert, Oriented to self, Time, Place�
Memory: Intact for immediate medical concerns
Comprehension: Intact
Two step command: Intact
Naming: Intact
Cranial Nerves:
�� CNII:�Pupillary light reflex: Intact����Visual Field: Intact
�� CN III, IV, : Extraocular muscles: Intact�
�� CN V:�Facial Sensation�at�Forehead: Intact,�Maxilla: Intact,�Mandible: Intact
�� CN VII:�Facial movement: Symmetric
�� CN VIII:�Hearing: Normal
�� CN IX/X:�Speech & swallow: Normal,�Position of Uvula: Midline
�� CN XI:�Shoulder shrug: Symmetric
�� CN XII:�Tongue protrusion: Midline
Sensory:
�� Light touch: Intact in bilateral upper and lower extremities except for decrease in a stocking and glove distribution
Proprioception: Absent in bilateral toes. Intact in bilateral ankles. Impaired bilateral fingers.
��
�
Reflexes:
�� Biceps: 0 bilaterally
�� Brachioradialis: 0 bilaterally
�� Triceps: 0 bilaterally
�� Patellar: 2+ left , absent - right
�� Achilles: 0 bilaterally
�� Babinski: Down going bilaterally
�� Clonus: None
�� Nasima: Negative bilaterally�
Cerebellar: Dysmetria/Ataxia: None�
Musculoskeletal: Motor: (Manual muscle scale 0-5)�
Muscle SA EF WE EE FF FA HF KE DF EHL PF
Right� >3 >3 5 >3 5 4 5 5 5 5
Left >3 >3 5 >3 5 4 5 5 5 5
�
Tone: Normal in all extremities�
Range of Motion: Passively within normal limits in all extremities�
�
Lab Results
Labs
WBC 14.2 10^3/uL (4.8-10.8) H 01/18/25 05:16
RBC 3.05 10^6/uL (4.70-6.10) L 01/18/25 05:16
Hgb 8.9 g/dL (13.0-18.0) L 01/18/25 05:16
Hct 27.5 % (39.0-52.0) L 01/18/25 05:16
MCV 90.2 fL (80.0-94.0) 01/18/25 05:16
MCH 29.2 pg (27.0-31.0) 01/18/25 05:16
MCHC 32.4 g/dL (33.0-37.0) L 01/18/25 05:16
RDW 15.9 % (11.5-14.5) H 01/18/25 05:16
Plt Count 213 10^3/uL (130-400) D 01/18/25 05:16
MPV 10.9 fL (7.4-10.4) H 01/18/25 05:16
Abs Immat Gran (auto) 0.1 10^3/uL (0-0.05) H 01/05/25 13:07
Absolute Neuts (auto) 6.2 10^3/uL (1.4-6.5) 01/05/25 13:07
Absolute Lymphs (auto) 2.1 10^3/uL (1.2-3.4) 01/05/25 13:07
Absolute Monos (auto) 0.9 10^3/uL (0.1-0.6) H 01/05/25 13:07
Absolute Eos (auto) 0.2 10^3/uL (0-0.7) 01/05/25 13:07
Absolute Basos (auto) 0.1 10^3/uL (0-0.2) 01/05/25 13:07
Immature Gran % 0.8 % (0-0.5) H 01/05/25 13:07
Neutrophils % 65.0 % (42.2-75.2) 01/05/25 13:07
Lymphocytes % 21.9 % (20.5-51.1) 01/05/25 13:07
Monocytes % 9.1 % (1.7-9.3) 01/05/25 13:07
Eosinophils % 2.2 % (0-6) 01/05/25 13:07
Basophils % 1.0 % (0-2) 01/05/25 13:07
Nucleated RBC % 0 % (-) 01/05/25 13:07
PT 17.7 Sec (11.4-14.6) H 01/11/25 20:59
INR 1.40 01/11/25 20:59
APTT 32.1 Sec (23.4-35.0) 01/11/25 20:59
pH 7.35 (7.35-7.45) 01/11/25 22:24
pCO2 41 mmHg (35-48) 01/11/25 22:24
pO2 85 mmHg (83-108) 01/11/25 22:24
HCO3 22.6 mmol/L (21-28) 01/11/25 22:24
Base Excess -2.8 mmol/L 01/11/25 22:24
ABG O2 Sat (Measured) 97.7 % (94-98) 01/11/25 22:24
POC ABG O2 Sat (Calc) 99.8 % (94-98) H 01/11/25 14:39
Mixed VBG O2 Saturation 54.0 % 01/13/25 03:07
Sodium Cancelled 01/11/25 17:05
Potassium 4.6 mMOL/L (3.5-5.1) 01/11/25 20:36
O2 Delivery Level 01/11/25 22:24
Sodium 137 mmol/L (135-145) 01/18/25 05:16
Potassium 3.7 mmol/L (3.5-5.1) 01/18/25 05:16
Chloride 105 mmol/L (98-107) 01/18/25 05:16
Carbon Dioxide 26 mmol/L (22-30) 01/18/25 05:16
BUN 34 mg/dl (9-20) H 01/18/25 05:16
Creatinine 1.5 mg/dL (0.7-1.3) H 01/18/25 05:16
Estimated Creat Clear 56 ml/min 01/18/25 05:16
eGFR 48.25 01/18/25 05:16
Glucose 89 mg/dl (70-99) 01/18/25 05:16
Hemoglobin A1c 6.9 % (4.0-5.6) H 01/05/25 13:07
Calcium 8.1 mg/dl (8.4-10.2) L 01/18/25 05:16
Ionized Calcium 1.18 mMOL/L (1.15-1.33) 01/11/25 22:24
Magnesium 2.3 mg/dl (1.6-2.3) 01/18/25 05:16
Total Bilirubin 0.8 mg/dl (0.2-1.3) 01/05/25 13:07
Direct Bilirubin 0.5 mg/dl (0.0-0.4) H 01/05/25 13:07
AST 25 U/L (17-59) 01/05/25 13:07
ALT 31 U/L (0-50) 01/05/25 13:07
Alkaline Phosphatase 110 U/L (38-126) 01/05/25 13:07
Total Protein 8.3 g/dl (6.3-8.2) H 01/05/25 13:07
Albumin 4.8 g/dl (3.5-5.0) 01/05/25 13:07
Urine Color Yellow 01/11/25 07:15
Urine Clarity Clear (Clear) 01/11/25 07:15
Urine pH 5.0 (5.0-9.0) 01/11/25 07:15
Ur Specific Sparkill 1.015 (<1.030) 01/11/25 07:15
Urine Ketones Negative (Negative) 01/11/25 07:15
Ur Occult Blood Reflex Negative (Negative) 01/11/25 07:15
Urine Nitrite (Reflex) Negative (Negative) 01/11/25 07:15
Urine Bilirubin Negative (Negative) 01/11/25 07:15
Urine Urobilinogen Negative (Neg - 1+) 01/11/25 07:15
Leukocyte Esterase Rfl Negative (Negative) 01/11/25 07:15
Urine RBC 0-2 /HPF (0-2) 01/11/25 07:15
Urine WBC (Reflex) 0-2 /HPF (0-5) 01/11/25 07:15
Ur Squamous Epith Cells 3-5 /LPF (Few) 01/11/25 07:15
Urine Bacteria (Reflex) Few (Negative) A 01/11/25 07:15
Urine Glucose 3+ (Negative) A 01/11/25 07:15
Urine Albumin (Reflex) 2+ (Neg - Trace) A 01/11/25 07:15
Specimen Type Arterial 01/11/25 14:39
POC ABG Comment Post 01/11/25 14:39
POC pH 7.31 (7.35-7.45) L 01/11/25 14:39
POC Base Excess -1.5 mmol/L 01/11/25 14:39
POC pO2 246 mmHg (83-108) H 01/11/25 14:39
POC pCO2 50 mmHg (35-48) H 01/11/25 14:39
POC HCO3 25 mmol/L (21-28) 01/11/25 14:39
POC Glucose 117 mg/dl (70-99) H 01/18/25 08:43
POC Glucose 173 mg/dl (70-99) H 01/11/25 14:39
POC Sodium 142 mmol/L (136-145) 01/11/25 14:39
POC Potassium 4.3 mmol/L (3.5-5.1) 01/11/25 14:39
POC Ionized Calcium 1.14 mmol/L (1.15-1.33) L 01/11/25 14:39
POC Lactate 1.49 mmol/L (0.36-0.75) H 01/11/25 14:39
POC ACT+ 137 Seconds (82-134) H 01/11/25 14:39
POC Hemoglobin Calc 9.4 01/11/25 14:39
POC Hematocrit 28 % PCV (42-52) L 01/11/25 14:39
POC Hemodilution Yes 01/11/25 14:39
Blood Type O POS 01/11/25 05:05
Antibody Screen Negative (Negative) 01/05/25 13:07
Crossmatch IS Only See Detail 01/10/25 11:23
�
Diagnostic Results:�as per HPI�
Chest x-ray�01/15/2025
There is no significant parenchymal opacification or vascular congestion. The heart is mildly enlarged, unchanged.. There is no pneumothorax, right pleural effusion or mediastinal shift. Small left pleural effusion is noted. Sternal metallic
hardware and prior surgery bridging the lower cervical and upper thoracic spine with metal hardware is again seen.
IMPRESSION:
Small left pleural effusion. No pneumothorax.
Chest x-ray�01/14/2025
Lines and tubes: Bilateral chest tubes and Central pulmonary artery catheter have been removed. Right internal jugular central venous sheath is seen with tip in SVC.
Lungs: There is no significant focal parenchymal opacification or vascular congestion. No pleural effusion or pneumothorax.
Heart: Cardiac and mediastinal contours are stable with left atrial appendage closure device again seen.
Osseous structures: Sternal metallic hardware is again identified.
IMPRESSION:
Interval removal of central pulmonary artery catheter and bilateral chest tubes. No pneumothorax.
Carotid ultrasound�01/05/2025
RIGHT: Calcified plaque is identified in the internal carotid artery. Carotid velocity measurements are consistent with less than 50% internal carotid artery stenosis. Vertebral artery flow is antegrade.
LEFT: Calcified plaque is identified at the carotid bulb and internal carotid artery. Carotid velocity measurements are consistent with less than 50% internal carotid artery stenosis. Vertebral artery flow is antegrade.
�
Assessment:
74-year-old male status post CABG x 5 due to multilevel coronary artery disease with ADL and ambulatory dysfunction
�
Plan�
PM&R�PT/OT to increase independence with ADLs, improve balance, coordination, endurance, strength, mobility, community reintegration, decreased burden of care on others and family education.�
Debility: PT, OT
CAD S/P CABG x 5: By Dr. Davies on 01/11/2025. sternal precautions.� Aspirin, statin, Farxiga, Plavix 75 mg daily, BP control.� Monitor incision, pain control.�
- Weight is up from 241 preop to 254 on 01/17. Diuresed well with 40 iv bid Lasix on 01/17 (UO 2625)- continue diuresis Lasix 40 mg orally.
HTN: continue medications, monitor closely�
Dizziness upon standing: Please check orthostatic vitals as patient gets dizzy getting out of bed and upon standing. Address orthostasis prior to discharge.
HLD: Atorvastatin 10 mg bedtime, Zetia 10 mg bedtime
Coronary artery disease�: Aspirin, statin, beta-zeyad�
Atrial fibrillation:�Had 1 episode with RVR lasting 30 minutes on 01/15. converted with Amiodarone continue amiodarone 200 mg twice daily,����metoprolol XL 50 mg daily
��������������������������������
DM II: Accu-Cheks, insulin sliding scale, insulin pump, Farxiga 10 mg daily
Peripheral polyneuropathy:���Likely diabetic given 30-year history of diabetes with stocking and glove distribution. Also with loss of proprioception where patient feels he has to look down at the ground to walk safely at times, particularly since
surgery. Makes patient at increased risk for falls.
-Spoke with patient about continued podiatric care which she gets every 9 months to do his nail care. Must keep an eye on his feet each day. Needs to be extra careful with walking since he has decreased proprioception.
Hypothyroidism: levothyroxine�50 mcg bedtime
Bilateral lower extremity edema: Consider TEDS as able. Increased fluid will cause more force requirement to move lower extremities which requires more strength and increases fatigue.�
Anemia: post op and multifactorial.�post transfusion 3 prbc. Last one on 01/15- hgb 8.9 . Continue to monitor.�
Leukocytosis: Trending down�14.2
Psych/Depression: �Monitor mood, medications as needed.�
CKD 3 A-likely related to diabetes. BUN 34, creatinine 1.5. (baseline Cr 1.4-1.7). Being diuresed.
Hypocalcemia: 8.1
Skin: monitor for pressure sores/rashes/lesions.�
Pain: acetaminophen or oxycodone as needed.� Duloxetine 60 mg daily, gabapentin 100 mg 3 times daily, Flexeril 5 mg Q8 as needed
Bowel: Senna, PRN bisacodyl.� Milk of magnesium 30 mL twice daily as needed
Bladder: Time void, PVRs, PRN straight cath.�
GI Prophylaxis: Pantoprazole�
DVT Prophylaxis: Mechanical and chemoprophylaxis
Pulmonary: Incentive spirometry�
Obesity: Continue to general counselor patient about diet adjustments to control obesity. Body habitus and increased force to move body and extremities causes further difficulty with functional tasks.�
Safety: Continue to reinforce assistance with all transfers.�
Code Status:�Not specified
Dispo�(date/plan/equipment needs): Home with family care.� Social history reviewed.�
Functional and Medical Goals:�Modified Independent with ADL�s, ambulation, transfers�
Discharge Destination: Patient status post CABG x 5 would benefit from acute inpatient rehabilitation for PT/OT to increase independence with ADLs, improve balance, coordination, endurance, strength, mobility, once he is hemodynamically and
medically stable, pending testing addressed and cleared by cardiology and surgery,
Attending Statement:
I saw and examined the patient today. Reviewed care plan with patient, therapy, nursing, and physician parts room assistant. I agree with the above subjective and physical exam, and plan as documented by NADYA Moore with adjustments made as necessary. A
total of 60 minutes were spent with the patient preparing for the evaluation, obtaining history, performing examination and evaluation, counseling, data review, case management, care coordination, court recorder, and EMR documentation.�
Summary of recommendations:
S/P CABG x 4: � Monitor.�wt is up from 241 preop to 254 on 01/17. Diuresed with 40 iv bid Lasix on 01/17 (UO 5855)- Continue to Diuresis well
Dizziness upon standing: Please check orthostatic vitals as patient gets dizzy getting out of bed and upon standing. Address orthostasis prior to discharge as patient has not been mobile and will require 3 hours of therapy standing if proceeding to
acute inpatient.
Peripheral polyneuropathy:���Likely diabetic given 30-year history of diabetes with stocking and glove distribution. Also with loss of proprioception where patient feels he has to look down at the ground to walk safely at times, particularly since
surgery. Makes patient at increased risk for falls.
DVT Prophylaxis: Recommend chemical prophylaxis.
Code Status:� please specify for patient in the chart
Thank you for allowing me to care for your patient. Please contact me with any questions or concerns.
Consultation
-
Date/Time Consultation Performed: 01/18/25
Requesting Provider: Dr. Gold Davies
Performing Provider: Dr. Napoleon Dillon
Reason for Consultation: Rehab placement
[2025-01-18 08:46] LABS: Glucose - Point of Care 117 mg/dl (70-99)
[2025-01-18] MEDS: PATIENT'S OWN INSULIN PUMP 3.75 UNITS SC (09:48)
--- NOTE | 2025-01-18 10:06 | W.PN.CD ---
Today's Communication / Plan
-
Diuresed well, that might explain the lower BP today
Monitor, may need to give a bit of fluid back or decrease BP med
Impression / Plan
-
Background: 74 y/o male with HTN, HLD, IDDM, moderate aortic valve stenosis and multivessel CAD admitted for elective CABG.
CAD s/p CABG x 5 on 01/11/25:
-S/pCABG x5 (SANTACRUZ to LAD, SVG to D1, SVG to OM1, SVG to OM3, SVG to LPL/OM3) and AtriClip with Dr. Davies, 01/11/2025
Brief post op AFIb
- No recurrence
Post-op anemia, gi bleeding not suspected
HTN
Mixed hyperlipidemia, goal LDL < 55 => continue statin
DM, Type II on insulin and oral meds
CKD, baseline Cr 1.4-1.7, stable despite the diuresis over last 24 hours
Wheezer, he has used bronchodilator at home => very littel wheeze today, perhaps some was from volume
Obesity, BMI 32-34
Subjective/Interval Hx:
Feels well. LE edema and wheezing on exam, tele quiet
Physical Exam
Vital Signs/Labs
Vital Signs
Temp Pulse Resp BP Pulse Ox
98.2 F 80 18 99/67 93
01/18/25 08:22 01/18/25 09:00 01/18/25 08:22 01/18/25 08:22 01/18/25 08:22
01/17/25 01/18/25 01/19/25
06:59 06:59 06:59
Actual Weight 115.3 kg 112.3 kg
01/18/25 05:16
01/18/25 05:16
PT 17.7 Sec (11.4-14.6) H 01/11/25 20:59
INR 1.40 01/11/25 20:59
APTT 32.1 Sec (23.4-35.0) 01/11/25 20:59
Magnesium 2.3 mg/dl (1.6-2.3) 01/18/25 05:16
Physical Exam
Constitutional: No acute distress
EENT: Anicteric
Cardiovascular: Rhythm & rate is regular and Pedal edema is absent (noted change from yesterday)
Respiratory: Respiratory effort normal and Wheeze Present (rare, less than yesterday)
GI: Non tender
Neuro/Psych: AO x 3
Data Reviewed
-
Date of Service: January 18, 2025
[2025-01-18 13:44] LABS: Glucose - Point of Care 120 mg/dl (70-99)
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
[2025-01-18] MEDS: PATIENT'S OWN INSULIN PUMP 7.5 UNITS SC (14:23)
[2025-01-18] MEDS: FLEXERIL 5 MG PO (14:23)
[2025-01-18] MEDS: NEURONTIN PO (17:13)
[2025-01-18 17:54] LABS: Glucose - Point of Care 108 mg/dl (70-99)
[2025-01-18] MEDS: PATIENT'S OWN INSULIN PUMP 7 UNITS SC (18:12)
--- NOTE | 2025-01-18 20:35 | PTCARENOTE ---
Assumed care of pt from daysazft RN. Walking rounds completed. Pt resting in bed at this time. AAOx3. SR on the tele monitor. HR 70s. Audible heart tones. BP stable. Palpable pulses throughout. +1 LE/UE edema present. Pt on RA. POX 94%. Lung sounds
diminished in B/L bases. Pt reports occasional expiratory wheeze w/ activity that resolves w/ PRN breathing tx and rest. Deep breathing and IS encouraged. Abdomen soft/nontender. +BSx4. Voiding w/o issue. Pt w/ home insulin pump. All surgical site
stable. PIV x1 intact. No c/o pain at this time. See worklist for full nursing assessment and interventions. Call de jesus within reach.
[2025-01-18] MEDS: LIPITOR 10 MG PO (21:57)
[2025-01-18] MEDS: ZETIA 10 MG PO (21:57)
[2025-01-18] MEDS: SYNTHROID 50 MCG PO (21:57)
[2025-01-18] MEDS: PATIENT'S OWN INSULIN PUMP SC (22:01)
[2025-01-18 22:02] LABS: Glucose - Point of Care 105 mg/dl (70-99)
[2025-01-19] VITALS (17 sets, daily range): BP systolic 48–130; BP diastolic 32–69; PULSE 76; BMI 33.4
--- NOTE | 2025-01-19 00:10 | PTCARENOTE ---
No change in assessment. VSS. Pt voiding as needed w/o issue. Repositioned in bed. Call de jesus within reach.
--- NOTE | 2025-01-19 03:40 | PTCARENOTE ---
No acute changes in assessment. Pt is SR on the tele monitor. HR 70s. BP stable. 94% on RA. Labs drawn and sent. Pt repositioned. Voiding in urinal as needed. Call de jesus within reach.
[2025-01-19 03:50] LABS: Hematocrit 27.2 % (39.0-52.0); Hemoglobin 9.0 g/dL (13.0-18.0); Mean Corp Hgb Conc. 33.1 g/dL (33.0-37.0); Mean Corpuscular Volume 90.1 fL (80.0-94.0); Platelet Count 259 10^3/uL (130-400); Red Cell Dist. Width 15.8 % (11.5-14.5)
[2025-01-19 05:39] LABS: Blood Urea Nitrogen 32 mg/dl (9-20); Calcium 8.1 mg/dl (8.4-10.2); Carbon Dioxide 28 mmol/L (22-30); Chloride 105 mmol/L (98-107); Estimated Creatinine Clearance 55 ml/min; Glucose 92 mg/dl (70-99); Magnesium 2.4 mg/dl (1.6-2.3); Potassium 3.6 mmol/L (3.5-5.1); Sodium 138 mmol/L (135-145); eGFR 48.25
[2025-01-19] MEDS: KCL 40 MEQ PO (06:44)
[2025-01-19] MEDS: TYLENOL 975 MG PO ×3 (06:44→20:58)
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
[2025-01-19] MEDS: CYMBALTA DELAYED RELEASE 60 MG PO (08:13)
[2025-01-19] MEDS: PLAVIX 75 MG PO (08:13)
[2025-01-19] MEDS: LOW STRENGTH ASPIRIN 81 MG PO (08:13)
[2025-01-19] MEDS: PROTONIX 40 MG PO (08:13)
[2025-01-19] MEDS: FARXIGA 10 MG PO (08:13)
[2025-01-19] MEDS: LASIX 40 MG PO (08:13)
[2025-01-19] MEDS: PACERONE 200 MG PO ×2 (08:13→20:58)
[2025-01-19] MEDS: TOPROL XL 50 MG PO (08:14)
[2025-01-19 08:17] LABS: Glucose - Point of Care 103 mg/dl (70-99)
--- NOTE | 2025-01-19 08:30 | PTCARENOTE ---
Patient received from production shift supervisor RN; AAOx3, responds spontaneously to RN and follows commands; B/L Hand tremors present; VSS; NSR on monitor; Trace generalized edema; +2 DP and radial pulses; OROURKE; Lungs diminished at bases; IS 1750 ml; SpO2 92-97%
on RA; Productive, occasional cough; Normoactive BS; Voiding luke, clear urine in bathroom; Surgical sites intact; PIVx1 - #20 right wrist; See nursing documentation for further information
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
[2025-01-19] MEDS: FLEXERIL 5 MG PO (09:18)
--- NOTE | 2025-01-19 09:36 | W.PN.CD ---
Today's Communication / Plan
-
stable and in NSR
BP improved
Hb - 9 monitor
Plan for Rehab
Impression / Plan
-
Background: 74 y/o male with HTN, HLD, IDDM, moderate aortic valve stenosis and multivessel CAD admitted for elective CABG.
CAD s/p CABG x 5 on 01/11/25:
-S/pCABG x5 (SANTACRUZ to LAD, SVG to D1, SVG to OM1, SVG to OM3, SVG to LPL/OM3) and AtriClip with Dr. Davies, 01/11/2025
- continue post op care per CT surgery
Brief post op AFIb
- No recurrence
Post-op anemia, HB up to 9 Monitor
Mixed hyperlipidemia, goal LDL < 55 => continue statin
DM, Type II on insulin and oral meds
CKD, baseline Cr 1.4-1.7, stable despite the diuresis over last 24 hours
Wheezer, he has used bronchodilator at home => very littel wheeze today, perhaps some was from volume
Obesity, BMI 32-34
Subjective/Interval Hx:
Feels well.no sob . comfortable in chair
Physical Exam
Vital Signs/Labs
Vital Signs
Temp Pulse Resp BP Pulse Ox
97.8 F 84 19 128/62 94
01/19/25 08:12 01/19/25 08:12 01/19/25 08:12 01/19/25 08:12 01/19/25 08:12
01/18/25 01/19/25 01/20/25
06:59 06:59 06:59
Actual Weight 112.3 kg 111.5 kg
01/19/25 03:35
01/19/25 04:49
PT 17.7 Sec (11.4-14.6) H 01/11/25 20:59
INR 1.40 01/11/25 20:59
APTT 32.1 Sec (23.4-35.0) 01/11/25 20:59
Magnesium 2.4 mg/dl (1.6-2.3) H 01/19/25 04:49
Physical Exam
Constitutional: No acute distress
Cardiovascular: Rhythm & rate is regular
Respiratory: Crackles Absent, Rhonchi Absent and Other (midly decreased at bases )
GI: Soft
Neuro/Psych: Alert
Data Reviewed
-
Date of Service: January 19, 2025
Echo: Report Reviewed by me
Medical Tests (PFT, Pathology etc): Report Reviewed by me
[2025-01-19] MEDS: PATIENT'S OWN INSULIN PUMP 3.75 UNITS SC (10:39)
--- NOTE | 2025-01-19 11:18 | PTCARENOTE ---
Patient received from night manager RN; AAOx3, responds spontaneously to RN and follows commands; B/L Hand tremors present; VSS; V-paced with AV pacing on monitor; Left-sided COMMERCIAL LOAN UNDERWRITER-P PPM in place; Trace generalized edema; +2 DP and radial pulses; OROURKE;
Lungs diminished at bases; IS 1750 ml; SpO2 92-97% on RA; Productive, occasional cough; Patient passing gas; Voiding luke, clear45 urine in bathroom; Left chest surgical incisions glued and approximated - BOBBIN HANDLER; PIVx2 - #20 left wrist and #18 left
forearm; See nursing documentation for further information
[2025-01-19] MEDS: NSS IV (12:17)
[2025-01-19 13:12] LABS: Glucose - Point of Care 140 mg/dl (70-99)
--- NOTE | 2025-01-19 13:38 | PTCARENOTE ---
Patient hypotensive when working with PT/OT this afternoon - knee high TEDs stockings applied to patient as per CVNP Yola Kearns; Patient resting comfortably in chair at this time
[2025-01-19] MEDS: PATIENT'S OWN INSULIN PUMP 10 UNITS SC (13:48)
--- NOTE | 2025-01-19 16:49 | PTCARENOTE ---
Patient able to ambulate with RN in room without dizziness or lightheadedness; Patient resting comfortably in bed at this time
--- NOTE | 2025-01-19 17:20 | W.PN.UPDATE ---
Update Note
Progress Note Update
pt seen with and then alone. looks stronger, less emotional, says he is looking forward to going to rehab. reviewed history with in private, remembers that he had a seizure while at [facility], was sent home on phenobarb, but able to be weaned
from that. agress he looks better, stronger. should do well on current regimen/plan
[2025-01-19 17:44] LABS: Glucose - Point of Care 161 mg/dl (70-99)
[2025-01-19] MEDS: PATIENT'S OWN INSULIN PUMP 11.7 UNITS SC (18:03)
--- NOTE | 2025-01-19 21:00 | PTCARENOTE ---
Patient received in bed watching television. Patient A+A+Ox3. No c/o pain or discomfort. Room air. SpO2 95%. Four chest tube sutures intact - Open to air. Sinus Rhythm. Heart rate 70-80's. Patient with no c/o chest pain, pressure or
discomfort. Abdomen soft, round, nontender. Normoactive bowel sounds. Voiding without difficulty. Sternal dressing intact. Right groin puncture site intact. Left groin puncture site intact - Ecchymotic. RLE incision intact. LLE incision
intact. Edema. ABIODUN stockings intact. Positive, palpable pulses. Assessment as documented.
[2025-01-19 22:07] LABS: Glucose - Point of Care 94 mg/dl (70-99)
[2025-01-19] MEDS: PATIENT'S OWN INSULIN PUMP SC (22:15)
[2025-01-19] MEDS: ZETIA 10 MG PO (22:20)
[2025-01-19] MEDS: LIPITOR 10 MG PO (22:20)
[2025-01-19] MEDS: SYNTHROID 50 MCG PO (22:21)
--- NOTE | 2025-01-19 23:30 | PTCARENOTE ---
Accucheck result 94. Patient ate two peanut butter crackers. Patient assisted to bathroom. Positive BM. Patient back to bed - Using rolling walker to ambulate. Patient with no c/o pain or discomfort. Assessment as documented.
[2025-01-20] VITALS (13 sets, daily range): BP systolic 107–167; BP diastolic 59–82; PULSE 81–88; O2SAT 94; BMI 33.5
--- NOTE | 2025-01-20 03:55 | PTCARENOTE ---
Patient sleeping. Patient A+A+Ox3 during periods of care. AM labs collected and sent. OOB to bathroom and chair in AM. Assessment/Interventions as documented.
[2025-01-20 04:02] LABS: Hematocrit 26.7 % (39.0-52.0); Hemoglobin 8.7 g/dL (13.0-18.0); Mean Corp Hgb Conc. 32.6 g/dL (33.0-37.0); Mean Corpuscular Volume 91.4 fL (80.0-94.0); Platelet Count 265 10^3/uL (130-400); Red Cell Dist. Width 15.6 % (11.5-14.5)
[2025-01-20 04:22] LABS: Blood Urea Nitrogen 28 mg/dl (9-20); Calcium 8.0 mg/dl (8.4-10.2); Carbon Dioxide 29 mmol/L (22-30); Chloride 103 mmol/L (98-107); Estimated Creatinine Clearance 55 ml/min; Glucose 98 mg/dl (70-99); Magnesium 2.3 mg/dl (1.6-2.3); Potassium 4.0 mmol/L (3.5-5.1); Sodium 137 mmol/L (135-145); eGFR 48.25
[2025-01-20] MEDS: TYLENOL PO (05:48)
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
--- NOTE | 2025-01-20 08:00 | PTCARENOTE ---
pt received from previous RN, oriented, OOB in chair. +tremors. SR on the monitor, HR 70s. SBP 120s. palpable pulses, trace generalized edema. TEDs in place. pt on RA, 95% POX. lungs diminished. IS encouraged. pt abdomen round, s/n, +flatus. +BM
overnight. voids. pt has own insulin pump. sternal incision approximated, c/d/i. chest tube site c/d/i. b/l groins intact. b/l SVG sites intact. PIV. pt c/o L scapular pain, pt requested Ice pack. see worklist for VS, I&O, and assessment.
--- NOTE | 2025-01-20 08:32 | W.PN.CD ---
Today's Communication / Plan
-
Continue diuresis.
Monitor H/H, renal function.
Outpatient GLP-1.
CTS looking to d/c to [facility] today.
Impression / Plan
-
Background: 74 y/o male with HTN, HLD, IDDM, moderate aortic valve stenosis and multivessel CAD admitted for elective CABG.
#CAD
-Chronic, progressive.
-s/p CABG x 5 on 01/11/25 (SANTACRUZ to LAD, SVG to D1, SVG to OM1, SVG to OM3, SVG to LPL/OM3) with Dr. Davies, 01/11/2025.
-Continue post operative management.
-Continue amiodarone, atorvastatin, aspirin, clopidogrel and metoprolol.
-Incentive spirometry.
-Ambulation.
-Favor continued diuresis given persistent weight gain. Ambulation will help mobilize the third spaced fluid.
#Brief post op AFIb
-No recurrence.
-Rate/rhythm control with metoprolol, amiodarone.
-CHADS2-Vasc = 5 (HTN, Age x2, DM, vascular disease).
-Limited AF without recurrence - no current plans for group home therapeutic anticoagulation.
#Post-op anemia
-Acute.
-HB up to 9.
-Monitor with diuresis.
#Mixed hyperlipidemia
-Chronic, stable.
-Continue atorvastatin.
-Goal LDL < 55.
#IDDM2
-Chronic.
-HbA1c = 6.9%.
-Continue insulin, dapagliflozin.
-The patient would benefit from outpatient GLP-1 medications.
#CKD, baseline Cr 1.4-1.7
-Chronic, stable despite the diuresis over last 24 hours.
-Continue diuresis and monitoring of renal function.
COPD/Asthma?
-Chronic, uses inhaled bronchodilator at home.
-Continue albuterol as needed.
#Obesity, BMI 32-34
-Chronic.
-Weight loss recommended.
-Outpatient GLP-1 medications as above.
Subjective/Interval Hx:
Some hypotension documented overnight, but seems like an aberrant reading.
Weight up 0.4 kg from yesterday, remains 2.4 kg up from baseline.
Physical Exam
Vital Signs/Labs
Vital Signs
Temp Pulse Resp BP Pulse Ox
36.4 C 79 18 122/61 95
01/20/25 07:53 01/20/25 08:00 01/20/25 07:53 01/20/25 07:49 01/20/25 07:53
01/18/25 01/19/25 01/20/25
11:59 11:59 11:59
Actual Weight 112.3 kg 111.5 kg 111.9 kg
01/20/25 03:39
01/20/25 03:39
PT 17.7 Sec (11.4-14.6) H 01/11/25 20:59
INR 1.40 01/11/25 20:59
APTT 32.1 Sec (23.4-35.0) 01/11/25 20:59
Magnesium 2.3 mg/dl (1.6-2.3) 01/20/25 03:39
Physical Exam
Constitutional: No acute distress and Comfortable
EENT: Anicteric and Moist mucous membranes
Cardiovascular: Rhythm & rate is regular, Pedal edema is absent, JVD pressure is normal, S1S2 is normal and Murmur/rub/gallop absent
Respiratory: Respiratory effort normal, Lungs clear to auscul., Wheeze Absent, Crackles Absent and Rhonchi Absent
GI: Soft, Distention absent, Flat, Non tender and Normal bowel sounds
Neuro/Psych: AO x 3
Data Reviewed
-
Date of Service: January 20, 2025
Medical Decision Making: Reviewed Test Results, Independent Historian Assessment and Test Interpretation
EKG: Tracing Personally Visualized and interpreted and Report Reviewed by me
X-Ray/CT/US/MRI/NUC/PET: Image Personally Visualized and interpreted and Report Reviewed by me
Labs: Labs Reviewed by me
Old Records: Reviewed
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
[2025-01-20] MEDS: PACERONE 200 MG PO ×2 (09:13→20:48)
[2025-01-20] MEDS: FARXIGA 10 MG PO (09:13)
[2025-01-20] MEDS: LASIX 40 MG PO (09:13)
[2025-01-20] MEDS: TOPROL XL 50 MG PO (09:13)
[2025-01-20] MEDS: PROTONIX 40 MG PO (09:13)
[2025-01-20] MEDS: LOW STRENGTH ASPIRIN 81 MG PO (09:13)
[2025-01-20] MEDS: PLAVIX 75 MG PO (09:13)
[2025-01-20] MEDS: CYMBALTA DELAYED RELEASE 60 MG PO (09:13)
[2025-01-20] MEDS: NSS IV (10:56)
[2025-01-20 11:28] LABS: Glucose - Point of Care 105 mg/dl (70-99)
[2025-01-20] MEDS: PATIENT'S OWN INSULIN PUMP SC ×3 (11:35→22:23)
--- NOTE | 2025-01-20 12:09 | CM ---
[employer] denied acute rehab- P-P done by [employer] STRATEGY EXECUTION CONSULTANT and upheld--send chart for denial appeal. awaiting outcome.
--- NOTE | 2025-01-20 12:30 | PTCARENOTE ---
pt VSS, no changes in assessment. OOB in chair for lunch. at bedside. pt ambulated to bathroom w/ RW and assist.
[2025-01-20] MEDS: TYLENOL 975 MG PO ×2 (13:20→20:49)
[2025-01-20] MEDS: PATIENT'S OWN INSULIN PUMP 6.2 UNITS SC (13:20)
[2025-01-20 13:29] LABS: Glucose - Point of Care 156 mg/dl (70-99)
--- NOTE | 2025-01-20 16:30 | PTCARENOTE ---
pt VSS, no changes in assessment. CT sutures removed per DUPLICATOR PUNCH SET UP OPERATOR. sternal Aquacel removed, site approximated. pt ambulated in hallway w/ RW and assist. OOB in chair for dinner.
[2025-01-20 17:06] LABS: Glucose - Point of Care 89 mg/dl (70-99)
[2025-01-20] MEDS: PATIENT'S OWN INSULIN PUMP 4.25 UNITS SC (18:46)
--- NOTE | 2025-01-20 21:00 | PTCARENOTE ---
Patient received resting in bed watching television. Patient A+A+Ox3. Room air. SpO2 94%. Sinus Rhythm. Heart rate 80's. Blood pressure 107/60 (72). Patient with no c/o chest pain, pressure or discomfort. Normoactive bowel sounds. Voiding
without difficulty. Ambulates with assist x1 and use of rolling walker. Positive pulses. Trace edema. Sternal incision intact - Open to air. Chest tube site - Sutures removed - scabbed. Right and Left groin puncture sites intact - Open to air
- Ecchymotic. Right and left lower extremity incisions intact - Open to air. Patient with own insulin pump - Left abdomen. Patient with no c/o back or flank pain. Assessment as documented.
[2025-01-20 22:18] LABS: Glucose - Point of Care 118 mg/dl (70-99)
[2025-01-20] MEDS: LIPITOR 10 MG PO (22:23)
[2025-01-20] MEDS: SYNTHROID 50 MCG PO (22:23)
[2025-01-20] MEDS: ZETIA 10 MG PO (22:23)
[2025-01-21] VITALS (10 sets, daily range): BP systolic 105–136; BP diastolic 57–89; PULSE 80; O2SAT 94; BMI 32.8
--- NOTE | 2025-01-21 | PTCARENOTE ---
Patient sleeping without difficulty. Assessment/Interventions as documented.
[2025-01-21 02:39] LABS: Glucose - Point of Care 88 mg/dl (70-99)
--- NOTE | 2025-01-21 03:00 | PTCARENOTE ---
Patient rang call de jesus. Personal Glucose Monitor reading 87. Patient concerned blood sugar may go lower. Accucheck result 88. Patient given two peanut butter crackers with 4oz apple juice. Vital signs stable. Heart rate 75. Blood pressure
136/69 (90). SpO2 Room air 96%. Patient now resting in bed. Assessment/Interventions as documented.
[2025-01-21] MEDS: TYLENOL PO ×2 (05:00→16:37)
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
[2025-01-21] MEDS: PATIENT'S OWN INSULIN PUMP SC ×2 (07:30→22:16)
[2025-01-21] MEDS: LASIX 40 MG PO (08:36)
[2025-01-21] MEDS: PLAVIX 75 MG PO (08:36)
[2025-01-21] MEDS: CYMBALTA DELAYED RELEASE 60 MG PO (08:36)
[2025-01-21] MEDS: LOW STRENGTH ASPIRIN 81 MG PO (08:36)
[2025-01-21] MEDS: TOPROL XL 50 MG PO (08:36)
[2025-01-21] MEDS: PACERONE 200 MG PO ×2 (08:36→19:42)
[2025-01-21] MEDS: PROTONIX 40 MG PO (08:36)
[2025-01-21] MEDS: FARXIGA 10 MG PO (08:36)
[2025-01-21] MEDS: NSS IV (08:37)
[2025-01-21] MEDS: PATIENT'S OWN INSULIN PUMP 10.85 UNITS SC (12:51)
[2025-01-21 15:02] LABS: Glucose - Point of Care 98 mg/dl (70-99)
[2025-01-21 17:38] LABS: Glucose - Point of Care 135 mg/dl (70-99)
[2025-01-21] MEDS: PATIENT'S OWN INSULIN PUMP 4.2 UNITS SC (18:31)
--- NOTE | 2025-01-21 19:00 | PTCARENOTE ---
Assumed care of patient at 1900. Patient found resting in bed at time of assessment. Patient is AOx4, follows commands appropriately, moves all extremities. Heart sounds are audible, patient is SR on the monitor, normal palpable pulses, and no
observable edema. Lung sounds are diminished in the bases, saO2 97% on RA, occasional non productive cough. Patient has active BS in all four quadrants and voids in urinal. There is a sternal incision approx with surg adhesive JACQUELYN, bilat groin sites
approx with surg adhesive rotary drill operator helper, and bilateral leg incision approx with surg adhesive NEEDLE CONTROL CHENILLER. Patient has R wrist PIV available for intermittent infusion. VSS. Call de jesus within reach.
[2025-01-21] MEDS: TYLENOL 975 MG PO (19:41)
[2025-01-21] MEDS: MELATONIN 5 MG PO (22:12)
[2025-01-21] MEDS: LIPITOR 10 MG PO (22:12)
[2025-01-21] MEDS: SYNTHROID 50 MCG PO (22:12)
[2025-01-21] MEDS: ZETIA 10 MG PO (22:12)
[2025-01-21 22:15] LABS: Glucose - Point of Care 117 mg/dl (70-99)
[2025-01-22] VITALS (7 sets, daily range): BP systolic 110–131; BP diastolic 55–102; BMI 32.2
--- NOTE | 2025-01-22 | PTCARENOTE ---
Patient reassessed. VSS. Remains in SR. Call de jesus within reach.
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
[2025-01-22] MEDS: TYLENOL 975 MG PO ×2 (06:04→20:02)
--- NOTE | 2025-01-22 06:31 | PTCARENOTE ---
Patient reassessed. AM labs obtained. VSS. Remains SR on the monitor. OOB to chair.
[2025-01-22 06:48] LABS: Blood Urea Nitrogen 20 mg/dl (9-20); Calcium 8.2 mg/dl (8.4-10.2); Carbon Dioxide 29 mmol/L (22-30); Chloride 104 mmol/L (98-107); Estimated Creatinine Clearance 58 ml/min; Glucose 90 mg/dl (70-99); Magnesium 2.2 mg/dl (1.6-2.3); Potassium 3.6 mmol/L (3.5-5.1); Sodium 138 mmol/L (135-145); eGFR 52.41
[2025-01-22] MEDS: LASIX 40 MG PO (08:47)
[2025-01-22] MEDS: PROTONIX 40 MG PO (08:47)
[2025-01-22] MEDS: CYMBALTA DELAYED RELEASE 60 MG PO (08:48)
[2025-01-22] MEDS: TOPROL XL 50 MG PO (08:48)
[2025-01-22] MEDS: PACERONE 200 MG PO ×2 (08:48→20:02)
[2025-01-22] MEDS: LOW STRENGTH ASPIRIN 81 MG PO (08:48)
[2025-01-22] MEDS: FARXIGA 10 MG PO (08:48)
[2025-01-22] MEDS: PLAVIX 75 MG PO (08:48)
--- NOTE | 2025-01-22 10:00 | PTCARENOTE ---
Received pT, AAOx4 makes all needs known; NS on monitor VSS; RA 96% clear lung sounds; GI and wnl; all surgical sights and iv sight CDI; see worklist for detailed assessment
--- NOTE | 2025-01-22 13:00 | PTCARENOTE ---
no change from previous assessment
[2025-01-22] MEDS: PATIENT'S OWN INSULIN PUMP SC ×4 (16:24→22:59)
[2025-01-22] MEDS: NSS IV (16:24)
[2025-01-22] MEDS: TYLENOL PO (16:24)
--- NOTE | 2025-01-22 17:00 | PTCARENOTE ---
no change from previous assessment
[2025-01-22 17:09] LABS: Glucose - Point of Care 106 mg/dl (70-99)
--- NOTE | 2025-01-22 20:15 | PTCARENOTE ---
Assumed care of pt from dayshift RN. Walking rounds completed. Pt resting in bed at this time. AAOx3. SR on the tele monitor. HR 70s. Audible heart tones. BP stable. Palpable pulses throughout. Trace generalized anasarca. Pt on RA. POX 96%. Lung
sounds diminished in B/L bases. Occasional productive cough. Deep breathing and IS encouraged. Abdomen soft/nontender. +BSx4. Voiding w/o issue. Pt w/ home insulin pump. All surgical site stable. PIV x1 intact. No c/o pain at this time. See worklist
for full nursing assessment and interventions. Call de jesus within reach.
[2025-01-22] MEDS: ZETIA 10 MG PO (22:52)
[2025-01-22] MEDS: LIPITOR 10 MG PO (22:52)
[2025-01-22] MEDS: SYNTHROID 50 MCG PO (22:53)
[2025-01-22] MEDS: MELATONIN 5 MG PO (22:53)
[2025-01-22 23:00] LABS: Glucose - Point of Care 106 mg/dl (70-99)
[2025-01-23] VITALS (8 sets, daily range): BP systolic 80–119; BP diastolic 44–74; PULSE 76; O2SAT 97; BMI 32.2
--- NOTE | 2025-01-23 00:38 | PTCARENOTE ---
No change in assessment. VSS. SR on the tele monitor. HR 70s. Pt voiding as needed w/o issue. Repositioned in bed. Call de jesus within reach.
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
--- NOTE | 2025-01-23 04:22 | PTCARENOTE ---
Pt reassessed. Remains SR on the tele monitor. HR 70s. BP stable. 94% on RA. All surgical sites stable. Pt voiding w/o issue. Labs drawn and sent. Pt requested orange juice for sugar of 88 from pt own glucose monitor. Denies pain. Call de jesus within
reach.
[2025-01-23 04:41] LABS: Blood Urea Nitrogen 19 mg/dl (9-20); Calcium 8.4 mg/dl (8.4-10.2); Carbon Dioxide 29 mmol/L (22-30); Chloride 104 mmol/L (98-107); Estimated Creatinine Clearance 54 ml/min; Glucose 90 mg/dl (70-99); Magnesium 2.2 mg/dl (1.6-2.3); Potassium 3.7 mmol/L (3.5-5.1); Sodium 139 mmol/L (135-145); eGFR 48.25
[2025-01-23] MEDS: TYLENOL 975 MG PO (06:36)
--- NOTE | 2025-01-23 07:37 | W.PN.CD ---
Today's Communication / Plan
-
Awaiting rehab.
Impression / Plan
-
Background: 74 y/o male with HTN, HLD, IDDM, moderate aortic valve stenosis and multivessel CAD admitted for elective CABG.
#CAD
-Chronic, progressive.
-s/p CABG x 5 on 01/11/25 (S[place]UZ to LAD, SVG to D1, SVG to OM1, SVG to OM3, SVG to LPL/OM3) with Dr. Davies, 01/11/2025.
-Continue post operative management.
-Continue amiodarone, atorvastatin, aspirin, furosemide, clopidogrel and metoprolol.
-Incentive spirometry.
-Ambulation.
#Brief post op AFIb
-No recurrence.
-Rate/rhythm control with metoprolol, amiodarone.
-CHADS2-Vasc = 5 (HTN, Age x2, DM, vascular disease).
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
#Post-op anemia
-Acute.
-HB up to 9.
-Monitor with diuresis.
#Mixed hyperlipidemia
-Chronic, stable.
-Continue atorvastatin.
-Goal LDL < 55.
#IDDM2
-Chronic.
-HbA1c = 6.9%.
-Continue insulin, dapagliflozin.
-The patient would benefit from outpatient GLP-1 medications.
#CKD, baseline Cr 1.4-1.7
-Chronic, stable despite the diuresis over last 24 hours.
-Continue diuresis and monitoring of renal function.
COPD/Asthma?
-Chronic, uses inhaled bronchodilator at home.
-Continue albuterol as needed.
#Obesity, BMI 32-34
-Chronic.
-Weight loss recommended.
-Outpatient GLP-1 medications as above.
Subjective/Interval Hx:
No acute events.
Awaiting transfer to rehab.
Physical Exam
Vital Signs/Labs
Vital Signs
Temp Pulse Resp BP Pulse Ox
36.6 C 70 18 101/74 94
01/23/25 03:37 01/23/25 06:00 01/23/25 03:37 01/23/25 03:37 01/23/25 03:37
01/21/25 01/22/25 01/23/25
11:59 11:59 11:59
Actual Weight 109.7 kg 107.7 kg 107.5 kg
01/20/25 03:39
01/23/25 03:50
PT 17.7 Sec (11.4-14.6) H 01/11/25 20:59
INR 1.40 01/11/25 20:59
APTT 32.1 Sec (23.4-35.0) 01/11/25 20:59
Magnesium 2.2 mg/dl (1.6-2.3) 01/23/25 03:50
Physical Exam
Constitutional: No acute distress and Comfortable
EENT: Anicteric and Moist mucous membranes
Cardiovascular: Rhythm & rate is regular, Pedal edema is absent, JVD pressure is normal, S1S2 is normal and Murmur/rub/gallop absent
Respiratory: Respiratory effort normal, Lungs clear to auscul., Wheeze Absent, Crackles Absent and Rhonchi Absent
GI: Soft, Distention absent, Flat, Non tender and Normal bowel sounds
Neuro/Psych: AO x 3
Data Reviewed
-
Date of Service: January 23, 2025
Medical Decision Making: Reviewed Test Results and Independent Historian Assessment
EKG: Tracing Personally Visualized and interpreted and Report Reviewed by me
Echo: Report Reviewed by me
X-Ray/CT/US/MRI/NUC/PET: Image Personally Visualized and interpreted and Report Reviewed by me
Medical Tests (PFT, Pathology etc): Report Reviewed by me
Labs: Labs Reviewed by me
[2025-01-23] MEDS: PROTONIX 40 MG PO (08:12)
[2025-01-23] MEDS: PACERONE 200 MG PO (08:12)
[2025-01-23] MEDS: TOPROL XL 50 MG PO (08:12)
[2025-01-23] MEDS: LOW STRENGTH ASPIRIN 81 MG PO (08:12)
[2025-01-23] MEDS: FARXIGA 10 MG PO (08:12)
[2025-01-23] MEDS: CYMBALTA DELAYED RELEASE 60 MG PO (08:12)
[2025-01-23] MEDS: PLAVIX 75 MG PO (08:12)
[2025-01-23 08:17] LABS: Glucose - Point of Care 105 mg/dl (70-99)
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
[2025-01-23] MEDS: LASIX 40 MG PO (08:53)
--- NOTE | 2025-01-23 08:59 | PTCARENOTE ---
Received pt from production shift supervisor RN at 0700; pt AAOx3 and resting comfortably in chair; NSR on monitor and VSS; PIV x1 patent; Lungs diminished; positive bowel sounds; pt voiding yellow urine; palpable pulses throughout; trace generalized edema; all
surgical sites C/D/I; see nursing documentation for further details.
[2025-01-23] MEDS: PATIENT'S OWN INSULIN PUMP 17.9 UNITS SC (09:33)
[2025-01-23] MEDS: KCL 40 MEQ PO (09:33)
--- NOTE | 2025-01-23 10:20 | CM ---
Reviewed chart. Received telephone call from Veronica manager military who states Mr. Blackman was approved for Acute inpatient Rehab. at [facility] [place]. Updated [facility] Liaison who states they will have a bed for Mr. Blackman today. Updated
Medical team. The report phone number is ([phone]). Updated MrAgustín and Mrs. Blackman. They are agreeable to going to [facility] [place]. Medical work-up in progress. The discharge plan is to go to [facility] [place] when medically
stable.
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
--- NOTE | 2025-01-23 12:27 | PTCARENOTE ---
Report given to [facility]; IV and front desk monitor removed; transport in room and pt sent to [facility].
== END 2025-01-23 12:34 | DRG 235 ==
LOC: CVICU 04:43
PROVIDERS: Anesthesiology; Clinical Nurse Specialist Acute Care; Nurse Practitioner; Nurse Practitioner Primary Care; Physician Assistant Medical; ADMITTING PHYSICIAN Thoracic Surgery (Cardiothoracic Vascular Surgery); CONSULT PHYSICIAN Internal Medicine; CONSULT PHYSICIAN Physical Medicine & Rehabilitation; FAMILY PHYSICIAN Family Medicine; OTHER PHYSICIAN Internal Medicine; OTHER PHYSICIAN Psychiatry & Neurology Psychiatry
PROC: 06BQ4ZZ Excision of Left Saphenous Vein, Percutaneous Endoscopic Approach (ICD-10-PCS; 2025-01-11)
PROC: B24BZZ4 Ultrasonography of Heart with Aorta, Transesophageal (ICD-10-PCS; 2025-01-11)
PROC: 06BP4ZZ Excision of Right Saphenous Vein, Percutaneous Endoscopic Approach (ICD-10-PCS; 2025-01-11)
PROC: 021309W Bypass Coronary Artery, Four or More Arteries from Aorta with Autologous Venous Tissue, Open Approach (ICD-10-PCS; 2025-01-11)
PROC: 02100ZC Bypass Coronary Artery, One Artery from Thoracic Artery, Open Approach (ICD-10-PCS; 2025-01-11)
PROC: 02L70CK Occlusion of Left Atrial Appendage with Extraluminal Device, Open Approach (ICD-10-PCS; 2025-01-11)
PROC: 02Q00ZZ Repair Coronary Artery, One Artery, Open Approach (ICD-10-PCS; 2025-01-11)
PROC: 30233R1 Transfusion of Nonautologous Platelets into Peripheral Vein, Percutaneous Approach (ICD-10-PCS; 2025-01-11)
PROC: 5A1221Z Performance of Cardiac Output, Continuous (ICD-10-PCS; 2025-01-11)
PROC: 30233N1 Transfusion of Nonautologous Red Blood Cells into Peripheral Vein, Percutaneous Approach (ICD-10-PCS; 2025-01-11)
DX: I25.10 Atherosclerotic heart disease of native coronary artery without angina pectoris (principal); J95.1 Acute pulmonary insufficiency following thoracic surgery; I97.411 Intraoperative hemorrhage and hematoma of a circulatory system organ or structure complicating a cardiac bypass; D62 Acute posthemorrhagic anemia; J98.11 Atelectasis; I35.0 Nonrheumatic aortic (valve) stenosis; Y83.2 Surgical operation with anastomosis, bypass or graft as the cause of abnormal reaction of the patient, or of later complication, without mention of misadventure at the time of the procedure; E11.42 Type 2 diabetes mellitus with diabetic polyneuropathy; E11.22 Type 2 diabetes mellitus with diabetic chronic kidney disease; I12.9 Hypertensive chronic kidney disease with stage 1 through stage 4 chronic kidney disease, or unspecified chronic kidney disease; N18.31 Chronic kidney disease, stage 3a; E86.1 Hypovolemia; E87.70 Fluid overload, unspecified; I48.91 Unspecified atrial fibrillation; R60.0 Localized edema; D72.829 Elevated white blood cell count, unspecified; D69.59 Other secondary thrombocytopenia; E83.51 Hypocalcemia; R00.1 Bradycardia, unspecified; R53.1 Weakness; E78.2 Mixed hyperlipidemia; F32.A Depression, unspecified; F43.10 Post-traumatic stress disorder, unspecified; E03.9 Hypothyroidism, unspecified; K21.9 Gastro-esophageal reflux disease without esophagitis; M54.16 Radiculopathy, lumbar region; J44.9 Chronic obstructive pulmonary disease, unspecified; E66.9 Obesity, unspecified; Z68.33 Body mass index [BMI] 33.0-33.9, adult; Z87.820 Personal history of traumatic brain injury; Z87.442 Personal history of urinary calculi; Z79.82 Long term (current) use of aspirin; Z79.4 Long term (current) use of insulin
CPT/HCPCS: 36415; 71045; 71046; 80048; 80053; 81003; 81015; 82248; 82330; 82565; 82805; 82810; 82947; 82962; 83036; 83735; 84132; 84302; 84520; 85014; 85018; 85025; 85027; 85049; 85610; 85730; 86850; 86900; 86901; 86920; 87070; 93005; 93312; 93320; 93325; 93880; 94002; 94010; 94640; 97116; 97163; 97167; 97530; 97535; C1713; P9016; P9045; P9073

== ENCOUNTER → 2025-02-17 15:38 | Outpatient (REF) | payer MEDICARE, SELFPAY | LOC: HWRAD 15:38 | PROVIDERS: ATTENDING PHYSICIAN Nurse Practitioner Acute Care; FAMILY PHYSICIAN Thoracic Surgery (Cardiothoracic Vascular Surgery) | DX: Z95.1 Presence of aortocoronary bypass graft (principal) | CPT/HCPCS: 71046 ==

== ENCOUNTER 2025-02-23 16:35 | Outpatient (RCR) | payer MEDICARE, SELFPAY ==
[2025-02-23 11:56] LABS: Glucose - Point of Care 156 mg/dl (70-99)
== END 2025-02-23 23:59 | disposition home or self-care (01) ==
LOC: CRHB 16:35
PROVIDERS: ATTENDING PHYSICIAN Internal Medicine
DX: I25.10 Atherosclerotic heart disease of native coronary artery without angina pectoris (principal); Z95.1 Presence of aortocoronary bypass graft
CPT/HCPCS: 82962; G0422; G0423

== ENCOUNTER 2025-04-17 02:23 | Emergency (ER) | payer MEDICARE, SELFPAY ==
[2025-04-17 02:24] VITALS: BP 149/73; BMI 32.6
[2025-04-17 02:29] LABS: Glucose - Point of Care 137 mg/dl (70-99)
[2025-04-17 03:27] LABS: Glucose - Point of Care 119 mg/dl (70-99)
[2025-04-17 04:05] VITALS: BP 124/83
--- NOTE | 2025-04-17 04:14 | EDRN ---
Patient ambulated to the restroom and back in bed, blood sugar remains stable at this time.
[2025-04-17 04:15] LABS: Glucose - Point of Care 134 mg/dl (70-99)
[2025-04-17 05:18] LABS: Glucose - Point of Care 163 mg/dl (70-99)
--- NOTE | 2025-04-17 05:50 | ED.GENMED ---
History of Present Illness
General
Chief Complaint: Blood Sugar Problem
Source: patient and spouse
Exam Limitations: none
Time Seen by Provider: 04/17/25 05:30
Nursing documentation reviewed up to this point in time: agreed with
History of Present Illness
History of Present Illness:
This is a 75-year-old gentleman with history of insulin requiring diabetes. Generally well-controlled he utilizes a CGM and OmniPod insulin pump. Tonight however approximately 1 hour prior to arrival he inadvertently programmed the pod to deliver
30 units instead of 3 units. Thus far feeling well. Denies sensation of hypoglycemia and CGM reading 149 upon arrival.
No history of similar episodes in the past.
Past History
Past History
ED Past Medical History: CAD, GERD, HTN, Hypercholesterolemia, IDDM and Hypothyroidism
ED Past Surgical History: Bowel resection, Cholecystectomy and Orthopedic
Social History
Tobacco: Non-smoker
Personal:
Living: with family
Employment: Retired
Family History
Family History: Other (Noncontributory)
Phy Exam
Physical Exam
Physical Exam:
GENERAL: 75-year-old gentleman appears his stated age, bright and alert, pleasant, easily communicative and in no acute distress. is accompanying.
EYE: anicteric
NECK: Supple, nontender, no meningismus, no significant adenopathy.
ENT: oral mucosa is moist. No rhinorrhea.
CARDIAC: Regular rate and rhythm. no murmur.
LUNGS: Clear breath sounds bilaterally, no acute respiratory distress, no wheezes/rales/rhonchi
ABDOMEN: Soft, nondistended, without focal tenderness, normoactive BS.
NEUROLOGICAL: Alert and oriented x3, no focal neuro deficits. Mild intention tremor.
SKIN: Warm and dry, normal color, skin intact. No rash.
MUSCULOSKELETAL: No C/C/E. peripheral pulses are full and equal b/l. No palpable tenderness.
PSYCH: Normal and appropriate interaction.
Course
Orders/Labs/Results
Orders:
Abnormal Lab Results
04/17/25 04/17/25 04/17/25
02:28 03:24 04:12
POC Glucose 137 H mg/dl 119 H mg/dl 134 H mg/dl
(70-99) (70-99) (70-99)
04/17/25
05:16
POC Glucose 163 H mg/dl
(70-99)
Vital Signs
Initial and Last Documented VS:
Initial Vital Signs
Temp Pulse Resp BP Pulse Ox
98.5 F 89 24 149/73 98
04/17/25 02:24 04/17/25 02:24 04/17/25 02:24 04/17/25 02:24 04/17/25 02:24
Last Documented Vital Signs
Temp Pulse Resp BP Pulse Ox
98.5 F 79 12 124/83 96
04/17/25 02:24 04/17/25 04:06 04/17/25 04:06 04/17/25 04:05 04/17/25 04:06
MDM/Problems Addressed
Differential Diagnosis Includes:
Concern for impending hypoglycemia related to accidental regular insulin administration.
No history of similar episodes in the past.
Patient has disconnected OmniPod.
Will monitor blood sugar frequently, every hour and will offer a box lunch.
MDM/Problems Addressed:
Accidental insulin overdose
Chronic conditions affecting care: DM and Neurological disorder
*Pulse Oximetry
SaO2: 96
Oxygen Mode of Delivery: Room air
Patient hypoxic: no
*Critical Care Note
Total Time (30-74mins, 75-104mins- exclusive of procedures): Not Applicable
Update Note
Update Note:
05:45
Patient has been monitored for several hours with Accu-Cheks every hour. He has had no episodes of hypoglycemia. Blood sugar now trending up from 140 to currently 160.
He has consumed a box lunch as well as some snacks.
Will resume insulin pump/OmniPod at basal rate.
Recommend frequent monitoring of blood sugar throughout the day and prompt follow-up with PCP/anodizer.
ED Attending Note
-
Portions of this chart may have been created with voice recognition software.� Occasional wrong word or��sound alike� substitutions may have occurred due to the inherent limitations of voice recognition software.
Discharge Plan
Departure
Patient Disposition: Home (Routine Discharge)
Date of Disposition: 04/17/25
Time of Disposition: 05:52
Patient with high blood pressure during this ER visit?: No
Condition: Good
Discharge Problem:
Accidental overdose of insulin
Instructions: Infusion pumps
Prescriptions:
No Action
levothyroxine 50 mcg Tablet
50 mcg PO HS
docusate sodium [Colace] 100 mg Capsule
100 mg PO BID
loratadine 10 mg Tablet
10 mg PO DAILY PRN (Reason: congestion)
duloxetine 60 mg Capsule,Delayed Release(Dr/Ec)
60 mg PO DAILY
eszopiclone 3 mg Tablet
3 mg PO HS
dapagliflozin propanediol [Farxiga] 10 mg Tablet
10 mg PO DAILY
ezetimibe-simvastatin [Vytorin 10-20] 10-20 mg Tablet
1 tab PO HS
insulin lispro [Humalog U-100 Insulin] 100 unit/mL Solution
See Rx Instructions .ROUTE .COMPLEX
Patient Comments:
'Omnipod' continuous variable Basal rate + AC & HS bolus dosing according to carbs
Rx Instructions:
0 unit subcutaneously
pantoprazole 40 mg Tablet,Delayed Release (Dr/Ec)
40 mg PO DAILY Qty: 0 0RF
potassium chloride 20 mEq Tablet,Er Particles/Crystals
10 meq PO DAILY Qty: 0 0RF
midodrine 5 mg Tablet
10 mg PO TID@0700,1300,1800 30 Days Qty: 180 0RF
metoprolol succinate 25 mg Tablet Extended Release 24 Hr
25 mg PO QPM 30 Days Qty: 30 0RF
acetaminophen 325 mg Tablet
650 mg PO Q4HPRN PRN (Reason: mild pain,headache) Qty: 0 0RF
amiodarone [Pacerone] 200 mg Tablet
200 mg PO DAILY 30 Days Qty: 30 0RF
aspirin 81 mg Tablet
81 mg PO DAILY Qty: 0 0RF
clopidogrel 75 mg Tablet
75 mg PO DAILY 30 Days Qty: 30 0RF
furosemide 40 mg Tablet
20 mg PO DAILY PRN (Reason: use if weight gain of 2-3 lbs overnight) 30 Days Qty: 15 0RF
Referrals:
uY Chase MD [Family Provider, Family Practice] - Call in 1-3 days for appt
Interventions
Interventions:
*General Assessment Last Done: 04/17/25 02:24
*Neglect/Abuse Screening Last Done: 04/17/25 02:24
*ED COVID-19 Vaccine History Last Done: 04/17/25 02:24
*ED Influenza Vaccine History Last Done: 04/17/25 02:24
*Risk Screen - Suicide (C-SSRS) Last Done: 04/17/25 02:24
ED- Neurological Assessment Last Done: 04/17/25 04:15
Discharge Date and Time
Print Language: POLISH
== END 2025-04-17 06:40 | disposition home or self-care (01) ==
LOC: EMR 02:23
PROVIDERS: EMERGENCY PHYSICIAN Emergency Medicine; FAMILY PHYSICIAN Family Medicine
DX: T38.3X1A Poisoning by insulin and oral hypoglycemic [antidiabetic] drugs, accidental (unintentional), initial encounter (principal); E10.9 Type 1 diabetes mellitus without complications; I25.10 Atherosclerotic heart disease of native coronary artery without angina pectoris; I10 Essential (primary) hypertension; E78.00 Pure hypercholesterolemia, unspecified; E03.9 Hypothyroidism, unspecified; K21.9 Gastro-esophageal reflux disease without esophagitis; Z79.4 Long term (current) use of insulin; Z96.41 Presence of insulin pump (external) (internal)
CPT/HCPCS: 99283; 82962